=== PATIENT | female | born 1950 | race Caucasian/White ===

== ENCOUNTER → 2019-05-13 09:31 | Outpatient (BNVA) | payer MEDICARE, BC, SELFPAY | PROVIDERS: Family Provider Nurse Practitioner Family; PCP Nurse Practitioner Family; Visit Provider Internal Medicine Hematology & Oncology | DX: C34.90 Malignant neoplasm of unspecified part of unspecified bronchus or lung (principal) | CPT/HCPCS: 80053; 85025 ==

== ENCOUNTER 2019-05-15 08:11 | Outpatient (CLI) | payer MEDICARE, BC, SELFPAY ==
--- NOTE | 2019-05-15 12:58 | ONC FU_ITS ---
Dr. Hanna follow up note Patient: Sugar Hoskins Unit #: [id number]: 1950 Dicatated By: Valentino Hanna M.D.Date of Visit:May 15, 2019 Onc Med Follow-up/Prog Note History of Present Illness: Mrs. Hoskins, is a 68-year-old female who was scheduled for colonoscopy evaluation and during colonoscopy prep she had near syncopal attack. During workup for the syncopal episode an X-ray was done. It reported an incidental finding of right upper lobe lesion. Mrs Hoskins was evaluated by Dr. Pinon and she underwent right upper lobe lobectomy on 04/08/2018. Pathology reported a 4.3 x 3.7 x 2.1 cm lesion with positive lymphovascular space invasion and tumor invaded into, but not through, the pleura. Margins were clear and 0 out of 3 lymph nodes showed no metastasis. As per pathology it was T2a lesion but as per eighth addition TNM it would be T2b as it is more than 4 cm. It was N0 and M0 as PET scan showed no distant metastases except 2.5 cm activity in the hepatic flexure of the colon with SUV of 16.5. Followup colonoscopy showed evidence of diverticulitis but no malignancy in that abnormal area. Being a high risk patient, she was referred to [facility] for evaluation by Dr. Godinez , medical oncologist who concurred with adjuvant chemotherapy and recommended cisplatin/Alimta-based regimen. Ms. Hoskins began her first dose of cisplatin and Alimta on 07/02/2018. And completed recommended 4 cycles of chemotherapy with cisplatin/Alimta on 09/03/2018 Came for follow-up, denies any specific complaints, no fever or chills, no nausea or vomiting, no diarrhea constipation, no new bony pains, right leg swelling has resolved. Appetite is good. Medications: Acetaminophen 2 Tablet (of 500 mg) Oral b.i.d., Aspirin 1 Tablet (of 81 mg) Oral daily, Atorvastatin Calcium 1 Tablet (of 80 mg) Oral daily, glipiZIDE 1 Tablet (of 5 mg) Oral daily, Hydrocodone-Acetaminophen 1 Tablet (of 5-325 mg) Oral at bedtime, Lisinopril-Hydrochlorothiazide 1 Tablet (of 10-12.5 mg) Oral daily Allergies: No Known Allergies. Review of Systems: Constitutional - Appetite is fair and weight is stable. No fever, chills, hot flashes, or night sweats. Energy level is fair/good, ENMT - Positive for sinus congestion/drainage. No mouth sores. No sore throat or difficulty swallowing, Hematologic/Lymphatic - Pt bruises and bleeds easily, Respiratory - Pt has shortness of breath. No cough. No pleuritic pain or hemoptysis, Cardiovascular - No angina pain. No palpitations, Gastrointestinal - No nausea or vomiting, Genitourinary (F) - No dysuria or hematuria. No urinary frequency. No urgency or incontinence, Musculoskeletal - No joint or bone pain, Neurologic - No headache or dizziness. Some numbness in right leg, Psychiatric - Pt positive for depression and frequent tearfulness/anxiety. No insomnia. Vital Signs: Performed on May 15, 2019 08:35 Height - 65.00 in Weight - 185.6 lbs (HIGH) BSA - 1.92 sq.m BMI - 30.89 (HIGH) Temperature - 98.8 F Pulse - 87 /min Respiration - 20 /min BP - 142/80 mm(hg) (HIGH) O2 Sat - 96 % Pain - 0 Performance Status: 0 - Fully active, able to carry on all predisease activities without restrictions. (ECOG) Physical Examination: ENMT - No oral exudates, ulcers, masses, thrush or mucositis. Oropharynx clear. Tongue normal, Respiratory - Lungs are clear to auscultation without rhonchi or wheezing, Cardiovascular - Regular rate and rhythm of heart, Abdomen - Non-tender, non-distended, Good bowel sounds. No guarding or rebound tenderness. No pulsatile masses, Extremities - no edema. Lab/Imaging: Test performed on May 13, 2019 09:31 WBC 5.9 10^9/L RBC 4.08 10^12/L HGB 12.0 g/dL HCT 36.6 % MCV 89.7 fl MCH 29.4 pg MCHC 32.8 g/dL RDW 12.3 % Platelet Count 332 10^9/L MPV 11.0 fL Neutrophils (Gran) 2.8 10^9/L Lymphocytes 2.4 10^9/L Monocytes 0.6 10^9/L Eosinophils 0.1 10^9/L Basophils 0.0 10^9/L Manual Lymphocytes 40.4 % Manual Monocytes 9.4 % Manual Eosinophils 1.3 % Manual Basophils 0.7 % NRBCs 0.0 /100 WBC Test performed on May 13, 2019 08:34 Glucose 118 mg/dL BUN 20 mg/dL Creatinine 0.8 mg/dL Cr Clearance (Est) 85.61 mL/min Sodium 138 mmol/L Potassium 4.4 mmol/L Chloride 99 mmol/L CO2 23 mmol/L Calcium 10.5 mg/dL Protein, Total 6.8 g/dL Albumin 4.2 g/dL Globulin 2.6 g/dL Bilirubin, Total 0.4 mg/dL Alkaline Phosphatase 76 IU/L AST (SGOT) 25 IU/L ALT (SGPT) 31 IU/L Test performed on Dec 02, 2018 09:56 Cholesterol, Total 137 mg/dL HDL Cholesterol 37 mg/dL LDL Cholesterol 65 mg/dL Triglycerides 177 mg/dL Impression: 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 Stage pT2b (>4 cm) N0,M0 stage IIa with a high risk feature like lymphovascular invasion, more than [address] PET scan done on 01/05/2018 showed 2.5 cm x 1.3 centimeter right upper lobe lesion with SUV of 8.8 and 2.5 cm lesion off activity in the hepatic flexure with SUV of 16.5 Follow-up colonoscopy showed diverticulitis and no evidence of malignancy in abnormal area mentioned in the CT PET scan Ms. Hoskins is now undergoing adjuvant chemotherapy for resected stage II infiltrating adenocarcinoma of the right upper lobe status post right upper lobectomy. Her current plan is cisplatin/Alimta for 4 cycles with treatments being on a 21 day cycle. She'll receive growth factor support as needed as well. She began her first cycle on 07/02/2018.Completed 4 cycles of chemotherapy with cisplatin/Alimta on 09/03/2018 Plan: Discussed with patient regarding her labs white blood count 5.9 hemoglobin crit 36.6 platelets 332,000 CMP within normal limits Clinically, patient is doing well with no signs symptoms suggestive of recurrence of disease are lab workup is reasonable. We'll continue to monitor and then she will return to clinic in 3 months with CBC CMP and follow-up CT scan of chest and abdomen and also get mammogram as the last mammogram was done several years ago. Signed By: Valentino Hanna M.D. <<Signature on File>>
== END 2019-05-15 08:12 | disposition home or self-care (01) ==
LOC: ONCMED 08:15
PROVIDERS: Family Provider Nurse Practitioner Family; PCP Nurse Practitioner Family; Visit Provider Internal Medicine Hematology & Oncology
DX: Z08 Encounter for follow-up examination after completed treatment for malignant neoplasm (principal); Z85.118 Personal history of other malignant neoplasm of bronchus and lung; F41.8 Other specified anxiety disorders; Z79.82 Long term (current) use of aspirin; Z79.891 Long term (current) use of opiate analgesic; Z90.2 Acquired absence of lung [part of]; Z92.21 Personal history of antineoplastic chemotherapy
CPT/HCPCS: 99214

== ENCOUNTER 2019-06-16 09:02 | Outpatient (CLI) | payer MEDICARE, BC, SELFPAY ==
--- NOTE | 2019-06-16 09:13 | MM_ITS ---
WS: [id number] BILATERAL SCREENING DIGITAL MAMMOGRAM WITH CAD HISTORY: SCREENING COMPARISON: 09/02/2014, 08/12/2014 Bilateral CC and MLO views submitted. Computer aided detection analyzed. Breast composition: The breasts are heterogeneously dense, which may obscure small masses. No suspici ous masses, microcalcifications or architectural distortion. Biopsy clip upper outer quadrant RIGHT b reast in the area the previously described calcifications. Long-term stability of a 9.3 mm mass LEFT breast at 2:00. Additional benign calcifications in each breast. MM/[place] [id number] IMPRESSION: BI-RADS: 2-Benign FOLLOW UP: 1 Year Follow-up
== END 2019-06-16 09:03 | disposition home or self-care (01) ==
LOC: ONCMED 09:09
PROVIDERS: Visit Provider Internal Medicine Hematology & Oncology
DX: Z12.31 Encounter for screening mammogram for malignant neoplasm of breast (principal)
CPT/HCPCS: 77067

== ENCOUNTER → 2019-08-18 11:23 | Outpatient (BNVA) | payer MEDICARE, BC, SELFPAY | PROVIDERS: Visit Provider Nurse Practitioner Family | DX: Z90.2 Acquired absence of lung [part of] (principal); C34.90 Malignant neoplasm of unspecified part of unspecified bronchus or lung; E11.9 Type 2 diabetes mellitus without complications; I10 Essential (primary) hypertension; E78.5 Hyperlipidemia, unspecified; K58.1 Irritable bowel syndrome with constipation | CPT/HCPCS: 80053; 80061; 83036; 84443; 85025 ==

== ENCOUNTER 2019-11-05 09:42 | Outpatient (CLI) | payer MEDICARE, BC, SELFPAY ==
--- NOTE | 2019-11-05 10:23 | CT_ITS ---
WS: [id number] CT CHEST, ABDOMEN, AND PELVIS TECHNIQUE: Contrast-enhanced CT of the chest, abdomen, and pelvis with coronal and sagittal reformatt ed images. CLINICAL INFORMATION: LUNG CANCER COMPARISON: None. DLP: 1947.[address] scans at [facility] use at least one of these dose optimization techniques: automat ed exposure control; mA and/or kV adjustment per patient size (includes targeted exams where dose is matched to clinical indication); or iterative reconstruction. CT CHEST: Prior postoperative changes right upper and middle lobectomies. Chronic emphysematous changes. Small esophageal hiatal hernia. Volume loss right lung. Parenchymal fibrosis right hilum and right upper lo be with surgical clips. No evidence of residual or recurrent disease. Focal pleural thickening right lower lobe along the diaphragm. Subsegmental atelectasis right lower lobe. Left lung is well aerated. No acute pulmonary infiltrates. No suspicious pulmonary parenchymal abnorm alities. No axillary lymphadenopathy. Thoracic scoliosis and kyphosis. CT ABDOMEN AND PELVIS: Diffuse fatty infiltration the liver. Normal portal vein and splenic vein. Normal gallbladder. Normal spleen. Small esophageal hiatal hernia. Adrenal glands are normal. Normal renal parenchymal enhancem ent. No hydronephrosis. Small left renal cyst. No abdominal lymphadenopathy. Normal caliber abdominal aorta. Aortic calcification. Postoperative changes sigmoid colon. No evidence of recurrent or residual disease at the sigmoid colo n anastomosis. Surgical clips left iliac chain. No evidence of small or large bowel obstruction. No p elvic lymphadenopathy. No inguinal lymphadenopathy. CT/CT chest abd pel w con* IMPRESSION: 1. No evidence of residual or progressed disease in the chest abdomen or pelvi s. 2. Prior postoperative changes subtotal right upper and right middle lobe lobe ctomies with surgical clips along the right hilum. Volume loss right lung. 3. Pleural thickening along the right hemidiaphragm with adjacent subsegmental atelectasis. Nodular thickening measures 10 mm. Recommend 6 month follow-up th chest CT to confirm stability. This is likely related to prior postoperative changes and chest tube placement. 4. No suspicious pulmonary parenchymal abnormalities. 5. No mediastinal or hilar lymphadenopathy. 6. Mild diffuse fatty infiltration liver. 7. No hydronephrosis. 8. Small esophageal hiatal hernia. 9. Sigmoid anastomosis. No evidence of local recurrence. 10. No other significant findings.
[2019-11-05 10:59] LABS: Blood Urea Nitrogen 19 mg/dL (8-23); Glomerular Filtration Rate 62.3 mL/min (90-130)
[2019-11-05] MEDS: iohexol 300 mg/mL 100 mL Btl IV (11:44)
[2019-11-05] MEDS: iohexol 300 mg/mL 50 mL Btl PO (11:44)
== END 2019-11-05 09:43 | disposition home or self-care (01) ==
PROVIDERS: PCP Nurse Practitioner Family; Visit Provider Internal Medicine Hematology & Oncology
DX: C34.11 Malignant neoplasm of upper lobe, right bronchus or lung (principal); K63.89 Other specified diseases of intestine; K44.9 Diaphragmatic hernia without obstruction or gangrene; K76.0 Fatty (change of) liver, not elsewhere classified
CPT/HCPCS: 71260; 74177; 82565; 84520

== ENCOUNTER 2019-11-07 09:41 | Outpatient (CLI) | payer MEDICARE, BC, SELFPAY ==
--- NOTE | 2019-11-07 10:50 | ONC FU_ITS ---
Dr. Hanna follow up note Patient: Sugar Hoskins Unit #: [id number]: 1950 Dicatated By: Valentino Hanna M.D.Date of Visit:Nov 07, 2019 Onc Med Follow-up/Prog Note History of Present Illness: Mrs. Hoskins, is a 69-year-old female who was scheduled for colonoscopy evaluation and during colonoscopy prep she had near syncopal attack. During workup for the syncopal episode an X-ray was done. It reported an incidental finding of right upper lobe lesion. Mrs Hoskins was evaluated by Dr. Pinon and she underwent right upper lobe lobectomy on 04/08/2018. Pathology reported a 4.3 x 3.7 x 2.1 cm lesion with positive lymphovascular space invasion and tumor invaded into, but not through, the pleura. Margins were clear and 0 out of 3 lymph nodes showed no metastasis. As per pathology it was T2a lesion but as per eighth addition TNM it would be T2b as it is more than 4 cm. It was N0 and M0 as PET scan showed no distant metastases except 2.5 cm activity in the hepatic flexure of the colon with SUV of 16.5. Followup colonoscopy showed evidence of diverticulitis but no malignancy in that abnormal area. Being a high risk patient, she was referred to [facility] for evaluation by Dr. Godinez , medical oncologist who concurred with adjuvant chemotherapy and recommended cisplatin/Alimta-based regimen. Ms. Hoskins began her first dose of cisplatin and Alimta on 07/02/2018. And completed recommended 4 cycles of chemotherapy with cisplatin/Alimta on 09/03/2018 f/u CT scan of chest abdomen pelvis done on November 05, 2019 showed no evidence of recurrence of disease, postoperative changes subtotal right upper and right middle lobe lobectomies, pleural thickening along the right hemidiaphragm with adjacent subsegmental atelectasis. Nodular thickening measuring 10 mm this is likely related to postoperative changes in the chest tube placement Mammogram done on June 16, 2019 showed benign findings BI-RADS 2 Came for follow-up, denies any specific complaints, no fever chills no nausea vomiting, no diarrhea constipation, no hemoptysis or hematemesis, no new bony pains, Appetite is good, weight is stable Medications: Acetaminophen 2 Tablet (of 500 mg) Oral b.i.d., Aspirin 1 Tablet (of 81 mg) Oral daily, Atorvastatin Calcium 1 Tablet (of 80 mg) Oral daily, Farxiga 1 Tablet (of 5 mg) Oral daily, Hydrocodone-Acetaminophen 1 Tablet (of 5-325 mg) Oral at bedtime, Lisinopril-Hydrochlorothiazide 1 Tablet (of 10-12.5 mg) Oral daily Allergies: No Known Allergies. Review of Systems: Constitutional - Appetite is fair and weight is stable. No fever, chills, hot flashes, or night sweats. Energy level is fair/good, ENMT - Positive for sinus congestion/drainage. No mouth sores. No sore throat or difficulty swallowing, Hematologic/Lymphatic - Pt bruises and bleeds easily, Respiratory - Pt has shortness of breath. No cough. No pleuritic pain or hemoptysis, Cardiovascular - No angina pain. No palpitations, Gastrointestinal - No nausea or vomiting, Genitourinary (F) - No dysuria or hematuria. No urinary frequency. No urgency or incontinence, Musculoskeletal - No joint or bone pain, Neurologic - No headache or dizziness. Some numbness in right leg, Psychiatric - Pt positive for depression and frequent tearfulness/anxiety. No insomnia. Vital Signs: Performed on Nov 07, 2019 10:27 Height - 65.00 in Weight - 183.6 lbs (LOW) BSA - 1.91 sq.m BMI - 30.55 (HIGH) Temperature - 98.4 F Pulse - 71 /min Respiration - 20 /min BP - 139/85 mm(hg) O2 Sat - 97 % Pain - 0 Performance Status: 0 - Fully active, able to carry on all predisease activities without restrictions. (ECOG) Physical Examination: ENMT - No mouth sores, no thrush, no jaundice, Respiratory - Lungs are clear, Cardiovascular - Regular rate and rhythm of heart, Abdomen - Soft, bowel sounds present, Extremities - No visible edema. Lab/Imaging: Test performed on May 13, 2019 09:31 WBC 5.9 10^9/L RBC 4.08 10^12/L HGB 12.0 g/dL HCT 36.6 % MCV 89.7 fl MCH 29.4 pg MCHC 32.8 g/dL RDW 12.3 % Platelet Count 332 10^9/L MPV 11.0 fL Neutrophils (Gran) 2.8 10^9/L Lymphocytes 2.4 10^9/L Monocytes 0.6 10^9/L Eosinophils 0.1 10^9/L Basophils 0.0 10^9/L Manual Lymphocytes 40.4 % Manual Monocytes 9.4 % Manual Eosinophils 1.3 % Manual Basophils 0.7 % NRBCs 0.0 /100 WBC Test performed on May 13, 2019 08:34 Glucose 118 mg/dL BUN 20 mg/dL Creatinine 0.8 mg/dL Cr Clearance (Est) 85.61 mL/min Sodium 138 mmol/L Potassium 4.4 mmol/L Chloride 99 mmol/L CO2 23 mmol/L Calcium 10.5 mg/dL Protein, Total 6.8 g/dL Albumin 4.2 g/dL Globulin 2.6 g/dL Bilirubin, Total 0.4 mg/dL Alkaline Phosphatase 76 IU/L AST (SGOT) 25 IU/L ALT (SGPT) 31 IU/L Impression: 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 Stage pT2b (>4 cm) N0,M0 stage IIa with a high risk feature like lymphovascular invasion, more than [address] PET scan done on 01/05/2018 showed 2.5 cm x 1.3 centimeter right upper lobe lesion with SUV of 8.8 and 2.5 cm lesion off activity in the hepatic flexure with SUV of 16.5 Follow-up colonoscopy showed diverticulitis and no evidence of malignancy in abnormal area mentioned in the CT PET scan Ms. Hoskins is now undergoing adjuvant chemotherapy for resected stage II infiltrating adenocarcinoma of the right upper lobe status post right upper lobectomy. Her current plan is cisplatin/Alimta for 4 cycles with treatments being on a 21 day cycle. She'll receive growth factor support as needed as well. She began her first cycle on 07/02/2018.Completed 4 cycles of chemotherapy with cisplatin/Alimta on 09/03/2018 Plan: Discussed with patient regarding her CT scan of chest abdomen pelvis finding as well as mammogram, which showed no evidence of recurrence of disease. Clinically patient has no signs symptom suggestive of recurrence of disease which was confirmed by follow-up CT scan of chest abdomen pelvis. Except pleural thickening on the right side which could be due to chest tube placement in the past. Source 6-month follow-up CT scan was recommended. Patient return to clinic in 6 months with CBC CMP and follow-up CT scan of chest. Her mammogram also showed benign findings. And will repeat mammogram in 1 year. Signed By: Valentino Hanna M.D. <<Signature on File>>
== END 2019-11-07 09:42 | disposition home or self-care (01) ==
LOC: ONCMED 09:46
PROVIDERS: PCP Nurse Practitioner Family; Visit Provider Internal Medicine Hematology & Oncology
DX: Z08 Encounter for follow-up examination after completed treatment for malignant neoplasm (principal); Z85.118 Personal history of other malignant neoplasm of bronchus and lung; Z90.2 Acquired absence of lung [part of]; Z92.21 Personal history of antineoplastic chemotherapy
CPT/HCPCS: G0463

== ENCOUNTER → 2020-02-11 10:13 | Outpatient (BNVA) | payer MEDICARE, BC, SELFPAY | PROVIDERS: PCP Nurse Practitioner Family; Visit Provider Nurse Practitioner Family | DX: E11.9 Type 2 diabetes mellitus without complications (principal); I10 Essential (primary) hypertension | CPT/HCPCS: 80053; 80061; 82043; 83036; 84443; 85025 ==

== ENCOUNTER → 2020-05-05 11:46 | Outpatient (BNVA) | payer MEDICARE, BC, SELFPAY | PROVIDERS: PCP Nurse Practitioner Family; Visit Provider Nurse Practitioner Family | DX: E11.65 Type 2 diabetes mellitus with hyperglycemia (principal); E78.5 Hyperlipidemia, unspecified; I10 Essential (primary) hypertension | CPT/HCPCS: 80053; 80061; 83036; 85025 ==

== ENCOUNTER 2020-05-07 10:22 | Outpatient (CLI) | payer MEDICARE, BC, SELFPAY ==
[2020-05-07 11:12] LABS: Basophils # 0.1 10^3/uL (0.0-0.1); Basophils % 0.7 %; Eosinophils # 0.1 10^3/uL (0.0-0.8); Eosinophils % 1.6 %; Hematocrit 41.6 % (37.0-47.0); Hemoglobin 13.6 g/dL (11.5-15.3); Lymphocytes # 2.5 10^3/uL (0.8-4.8); Lymphocytes % 30.9 %; Mean Corpuscular HGB Conc 32.7 g/dL (30.0-36.0); Mean Corpuscular Hemoglobin 29.8 pg (28.0-34.0); Mean Platelet Volume 11.6 fL (7.4-10.4); Monocytes # 0.5 10^3/uL (0.2-0.9); Monocytes % 6.3 %; Neutrophils # 4.87 10^3/uL (1.8-7.7); Neutrophils % 60.1 %; Nucleated Red Blood Cells % 0 %; Platelet Count 334 10^3/cmm (130-400); Red Blood Count 4.57 10^6/uL (4.1-5.3); White Blood Count 8.1 10^3/uL (4.0-10.0)
[2020-05-07 11:28] LABS: Alanine Aminotransferase 29 U/L (0-33); Albumin Level 4.6 g/dL (3.5-5.2); Alkaline Phosphatase 94 IU/L (35-105); Aspartate Amino Transferase 29 U/L (0-32); Blood Urea Nitrogen 15 mg/dL (8-23); Calcium 9.8 mg/dL (8.5-10.5); Carbon Dioxide 25 mmol/L (22-29); Chloride 100 mmol/L (98-107); Globulin 3.3 g/dL (1.3-4.6); Glomerular Filtration Rate 83.2 mL/min (90-130); Glucose 179 mg/dL (65-115); Osmolality Calculated 291 mOsm/kg (285-295); Sodium 138 mmol/L (136-145); Total Bilirubin 0.4 mg/dL (0.15-1.2); Total Protein 7.9 g/dL (6.6-8.7)
== END 2020-05-07 10:23 | disposition home or self-care (01) ==
LOC: ONCMED 10:25
PROVIDERS: PCP Nurse Practitioner Family; Visit Provider Internal Medicine Hematology & Oncology
DX: C34.11 Malignant neoplasm of upper lobe, right bronchus or lung (principal); K76.0 Fatty (change of) liver, not elsewhere classified; J98.11 Atelectasis
CPT/HCPCS: 71260; 80053; 85025

== ENCOUNTER 2020-05-07 11:14 | Outpatient (CLI) | payer MEDICARE, BC, SELFPAY ==
--- NOTE | 2020-05-07 11:26 | CT_ITS ---
WS: [id number] CT CHEST TECHNIQUE: Contrast enhanced CT of the chest with coronal and sagittal reformatted images. CLINICAL INFORMATION: LUNG CANCER COMPARISON: None. DLP: 839.[address] scans at [facility] use at least one of these dose optimization techniques: automat ed exposure control; mA and/or kV adjustment per patient size (includes targeted exams where dose is matched to clinical indication); or iterative reconstruction. FINDINGS: Prior postoperative changes RIGHT upper and middle lobectomies. Stable volume loss right andrea ng. Stable 10 mm nodular pleural thickening along the right hemidiaphragm is unchanged. No evidence o f progressed disease in the right lung. Soft tissue opacity in the LEFT upper lobe anteriorly along the anterior mediastinum measures approxi mately 10 mm. Small amount of nodularity in this area on the prior examination measuring 3 mm.. This is nonspecific and could be further evaluated with PET/CT versus short-term 3 month follow-up. Diffuse fatty infiltration of the liver. Small esophageal hiatal hernia. Adrenal glands are normal. M ild thoracic kyphosis. Mild thoracic curve. Moderate chronic emphysematous changes. No acute pulmonary infiltrates. No consolidation or pleural f luid. CT/CT chest w con* [id number] IMPRESSION: 1. Prior postoperative changes subtotal RIGHT upper and right middle lobe lobe ctomy surgical clips along the right hilum. No evidence of progressed disease i n the right lung. 2. Stable pleural thickening along the right hemidiaphragm with subsegmental a telectasis measuring 10 mm. This is unchanged compared to previous. 3. Nonspecific 10 mm opacity in the LEFT upper lobe anteriorly abutting the me diastinum. Small amount of nodular fibrosis in this area on the prior examinati on. This has significantly increased in size. Recommend further evaluation with PET/CT or [address] follow-up. 4. No mediastinal or hilar lymphadenopathy. 5. Mild diffuse fatty infiltration liver.
[2020-05-07] MEDS: iohexol 300 mg/mL 100 mL Btl IV (11:53)
== END 2020-05-07 11:15 | disposition home or self-care (01) ==
LOC: RAD 11:21
PROVIDERS: PCP Nurse Practitioner Family; Visit Provider Internal Medicine Hematology & Oncology
DX: C34.11 Malignant neoplasm of upper lobe, right bronchus or lung (principal); K76.0 Fatty (change of) liver, not elsewhere classified; J98.11 Atelectasis
CPT/HCPCS: 71260

== ENCOUNTER 2020-05-10 05:47 | Outpatient (CLI) | payer MEDICARE, BC, SELFPAY ==
--- NOTE | 2020-05-10 14:48 | ONC FU_ITS ---
Dr. Hanna follow up note Patient: Sugar Hoskins Unit #: [id number]: 1950 Dicatated By: Valentino Hanna M.D.Date of Visit:May 10, 2020 Onc Med Follow-up/Prog Note History of Present Illness: Mrs. Hoskins, is a 69-year-old female who was scheduled for colonoscopy evaluation and during colonoscopy prep she had near syncopal attack. During workup for the syncopal episode an X-ray was done. It reported an incidental finding of right upper lobe lesion. Mrs Hoskins was evaluated by Dr. Pinon and she underwent right upper lobe lobectomy on 04/08/2018. Pathology reported a 4.3 x 3.7 x 2.1 cm lesion with positive lymphovascular space invasion and tumor invaded into, but not through, the pleura. Margins were clear and 0 out of 3 lymph nodes showed no metastasis. As per pathology it was T2a lesion but as per eighth addition TNM it would be T2b as it is more than 4 cm. It was N0 and M0 as PET scan showed no distant metastases except 2.5 cm activity in the hepatic flexure of the colon with SUV of 16.5. Followup colonoscopy showed evidence of diverticulitis but no malignancy in that abnormal area. Being a high risk patient, she was referred to [facility] for evaluation by Dr. Godinez , medical oncologist who concurred with adjuvant chemotherapy and recommended cisplatin/Alimta-based regimen. Ms. Hoskins began her first dose of cisplatin and Alimta on 07/02/2018. And completed recommended 4 cycles of chemotherapy with cisplatin/Alimta on 09/03/2018 f/u CT scan of chest abdomen pelvis done on November 05, 2019 showed no evidence of recurrence of disease, postoperative changes subtotal right upper and right middle lobe lobectomies, pleural thickening along the right hemidiaphragm with adjacent subsegmental atelectasis. Nodular thickening measuring 10 mm this is likely related to postoperative changes in the chest tube placement Mammogram done on June 16, 2019 showed benign findings BI-RADS 2 Follow-up CT scan of chest done on May 07, 2020 showed postoperative changes right upper and right middle lobe, no evidence of disease progression in the right lung. Nonspecific 10 mm opacity in the left upper lobe anteriorly abutting mediastinum. Small amount of nodular fibrosis in this area on the prior examination. Has significantly increased in size no mediastinal or hilar lymphadenopathy, diffuse fatty infiltration liver Came for follow-up, patient denies any specific complaints, no fever chills, no nausea or vomiting, no diarrhea constipation, no hemoptysis or hematemesis, no new bony pains, appetite is good. Medications: Acetaminophen 2 Tablet (of 500 mg) Oral b.i.d., Aspirin 1 Tablet (of 81 mg) Oral daily, Atorvastatin Calcium 1 Tablet (of 80 mg) Oral daily, Farxiga 1 Tablet (of 5 mg) Oral daily, Hydrocodone-Acetaminophen 1 Tablet (of 5-325 mg) Oral at bedtime, Lisinopril-Hydrochlorothiazide 1 Tablet (of 10-12.5 mg) Oral daily Allergies: No Known Allergies. Review of Systems: Constitutional - Appetite is fair and weight is stable. No fever, chills, hot flashes, or night sweats. Energy level is fair/good, ENMT - Positive for sinus congestion/drainage. No mouth sores. No sore throat or difficulty swallowing, Hematologic/Lymphatic - Pt bruises and bleeds easily, Respiratory - Pt has shortness of breath. No cough. No pleuritic pain or hemoptysis, Cardiovascular - No angina pain. No palpitations, Gastrointestinal - No nausea or vomiting, Genitourinary (F) - No dysuria or hematuria. No urinary frequency. No urgency or incontinence, Musculoskeletal - No joint or bone pain, Neurologic - No headache or dizziness. Some numbness in right leg, Psychiatric - Pt positive for depression and frequent tearfulness/anxiety. No insomnia. Vital Signs: Vitals are not available for this patient. Performance Status: 0 - Fully active, able to carry on all predisease activities without restrictions. (ECOG) Physical Examination: ENMT - No mouth sores, no thrush, no jaundice, Respiratory - Lungs are clear to auscultation, Cardiovascular - Regular rate and rhythm of heart, Abdomen - Soft, bowel sounds present, Extremities - No visible edema. Lab/Imaging: Test performed on May 07, 2020 10:34 Sodium 138 mmol/L Potassium 4.0 mmol/L Chloride 100 mmol/L CO2 25 mmol/L Anion Gap 17.0 BUN 15 mg/dL Creatinine 0.7 mg/dL Cr Clearance (Est) 101.1300 mL/min eGFR 83.2 mL/min Glucose 179 mg/dL Osmolality - Calculated 291 mOsm/kg Calcium 9.8 mg/dL Protein, Total 7.9 g/dL Albumin 4.6 g/dL Globulin 3.3 g/dL Bilirubin, Total 0.4 mg/dL ALT (SGPT) 29 U/L AST (SGOT) 29 U/L Alkaline Phosphatase 94 IU/L WBC 8.1 10 3/uL RBC 4.57 10 6/uL HGB 13.6 g/dL HCT 41.6 % MCV 91.0 fL MCH 29.8 pg MCHC 32.7 g/dL RDW 12.0 % Platelet Count 334 10 3/cmm MPV 11.6 fL Neutrophils 4.87 10 3/uL Lymphocytes 2.5 10 3/uL Monocytes 0.5 10 3/uL Eosinophils 0.1 10 3/uL Basophils 0.1 10 3/uL Neutrophil % 60.1 % Lymphocyte % 30.9 % Monocyte % 6.3 % Eosinophil % 1.6 % Basophils % 0.7 % NRBC % 0 % Impression: 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 Stage pT2b (>4 cm) N0,M0 stage IIa with a high risk feature like lymphovascular invasion, more than [address] PET scan done on 01/05/2018 showed 2.5 cm x 1.3 centimeter right upper lobe lesion with SUV of 8.8 and 2.5 cm lesion off activity in the hepatic flexure with SUV of 16.5 Follow-up colonoscopy showed diverticulitis and no evidence of malignancy in abnormal area mentioned in the CT PET scan s/p adjuvant chemotherapy for resected stage II infiltrating adenocarcinoma of the right upper lobe status post right upper lobectomy. cisplatin/Alimta for 4 cycles She began her first cycle on 07/02/2018.Completed 4 cycles of chemotherapy with cisplatin/Alimta on 09/03/2018 Plan: Discussed with patient regarding her labs white blood count 8.1 hemoglobin 13.6 hematocrit 41.6 platelets 334,000 CMP within normal limit except glucose [address] scan of chest done recently showed postoperative changes in the right lung no evidence of recurrence of disease but nonspecific progressive changes in the left upper lobe anteriorly abutting the mediastinum, CT PET scan is recommended for further evaluation Clinically, patient denies any signs symptom suggestive of recurrence of disease but her follow-up CT scan of chest showed nonspecific but progressive changes in left upper lobe, as per radiologist CT PET scan was recommended to evaluate further, so we will schedule her for CT PET scan and she will return to clinic after CT PET scan for further discussion, if CT PET scan shows abnormality in the left upper lobe of the lung, will refer her to pulmonology for evaluation. Signed By: Valentino Hanna M.D. <<Signature on File>>
== END 2020-05-10 05:48 | disposition home or self-care (01) ==
LOC: ONCMED 05:51
PROVIDERS: PCP Nurse Practitioner Family; Visit Provider Internal Medicine Hematology & Oncology
DX: C34.11 Malignant neoplasm of upper lobe, right bronchus or lung (principal); Z90.2 Acquired absence of lung [part of]; Z92.21 Personal history of antineoplastic chemotherapy
CPT/HCPCS: 99214

== ENCOUNTER 2020-05-27 06:00 | Outpatient (CLI) | payer MEDICARE, BC, SELFPAY ==
--- NOTE | 2020-05-28 12:04 | ONC FU_ITS ---
Dr. Hanna follow up note Patient: Sugar Hoskins Unit #: [id number]: 1950 Dicatated By: Valentino Hanna M.D.Date of Visit:May 27, 2020 Onc Med Follow-up/Prog Note History of Present Illness: Mrs. Hoskins, is a 69-year-old female who was scheduled for colonoscopy evaluation and during colonoscopy prep she had near syncopal attack. During workup for the syncopal episode an X-ray was done. It reported an incidental finding of right upper lobe lesion. Mrs Hoskins was evaluated by Dr. Pinon and she underwent right upper lobe lobectomy on 04/08/2018. Pathology reported a 4.3 x 3.7 x 2.1 cm lesion with positive lymphovascular space invasion and tumor invaded into, but not through, the pleura. Margins were clear and 0 out of 3 lymph nodes showed no metastasis. As per pathology it was T2a lesion but as per eighth addition TNM it would be T2b as it is more than 4 cm. It was N0 and M0 as PET scan showed no distant metastases except 2.5 cm activity in the hepatic flexure of the colon with SUV of 16.5. Followup colonoscopy showed evidence of diverticulitis but no malignancy in that abnormal area. Being a high risk patient, she was referred to [facility] for evaluation by Dr. Godinez , medical oncologist who concurred with adjuvant chemotherapy and recommended cisplatin/Alimta-based regimen. Ms. Hoskins began her first dose of cisplatin and Alimta on 07/02/2018. And completed recommended 4 cycles of chemotherapy with cisplatin/Alimta on 09/03/2018 f/u CT scan of chest abdomen pelvis done on November 05, 2019 showed no evidence of recurrence of disease, postoperative changes subtotal right upper and right middle lobe lobectomies, pleural thickening along the right hemidiaphragm with adjacent subsegmental atelectasis. Nodular thickening measuring 10 mm this is likely related to postoperative changes in the chest tube placement Mammogram done on June 16, 2019 showed benign findings BI-RADS 2 Follow-up CT scan of chest done on May 07, 2020 showed postoperative changes right upper and right middle lobe, no evidence of disease progression in the right lung. Nonspecific 10 mm opacity in the left upper lobe anteriorly abutting mediastinum. Small amount of nodular fibrosis in this area on the prior examination. Has significantly increased in size no mediastinal or hilar lymphadenopathy, diffuse fatty infiltration liver Follow-up CT PET scan done on May 15, 2020 shows a new soft tissue lesion at the anterior mediastinum, contiguous with the left upper lobe measuring 1.2 cm with SUV of 3.3 and postsurgical change in the right upper lung Came for follow-up, denies any specific complaints, no fever chills, no nausea or vomiting, no diarrhea constipation, no hemoptysis or hematemesis, no headaches or blurred vision or double vision, no shortness of breath, no cough, no weight loss, appetite is good. Medications: Acetaminophen 2 Tablet (of 500 mg) Oral b.i.d., Aspirin 1 Tablet (of 81 mg) Oral daily, Atorvastatin Calcium 1 Tablet (of 80 mg) Oral daily, Farxiga 1 Tablet (of 5 mg) Oral daily, Hydrocodone-Acetaminophen 1 Tablet (of 5-325 mg) Oral at bedtime, Lisinopril-Hydrochlorothiazide 1 Tablet (of 10-12.5 mg) Oral daily Allergies: No Known Allergies. Review of Systems: Review of Systems is not available for this patient. Vital Signs: Performed on May 27, 2020 16:04 Height - 65.00 in Weight - 183.4 lbs (HIGH) BSA - 1.91 sq.m BMI - 30.52 (HIGH) Temperature - 98.2 F (LOW) Pulse - 112 /min (HIGH) Respiration - 18 /min BP - 198/83 mm(hg) (HIGH) O2 Sat - 110 % (HIGH) Pain - 0 Performance Status: 0 - Fully active, able to carry on all predisease activities without restrictions. (ECOG) Physical Examination: ENMT - No mouth sores, no thrush, no jaundice, Respiratory - Lungs are clear to auscultation, Cardiovascular - Regular rate and rhythm of heart, Abdomen - Soft, bowel sounds present, Extremities - No visible edema. Lab/Imaging: Test performed on May 07, 2020 10:34 Sodium 138 mmol/L Potassium 4.0 mmol/L Chloride 100 mmol/L CO2 25 mmol/L Anion Gap 17.0 BUN 15 mg/dL Creatinine 0.7 mg/dL Cr Clearance (Est) 101.1300 mL/min eGFR 83.2 mL/min Glucose 179 mg/dL Osmolality - Calculated 291 mOsm/kg Calcium 9.8 mg/dL Protein, Total 7.9 g/dL Albumin 4.6 g/dL Globulin 3.3 g/dL Bilirubin, Total 0.4 mg/dL ALT (SGPT) 29 U/L AST (SGOT) 29 U/L Alkaline Phosphatase 94 IU/L WBC 8.1 10 3/uL RBC 4.57 10 6/uL HGB 13.6 g/dL HCT 41.6 % MCV 91.0 fL MCH 29.8 pg MCHC 32.7 g/dL RDW 12.0 % Platelet Count 334 10 3/cmm MPV 11.6 fL Neutrophils 4.87 10 3/uL Lymphocytes 2.5 10 3/uL Monocytes 0.5 10 3/uL Eosinophils 0.1 10 3/uL Basophils 0.1 10 3/uL Neutrophil % 60.1 % Lymphocyte % 30.9 % Monocyte % 6.3 % Eosinophil % 1.6 % Basophils % 0.7 % NRBC % 0 % Impression: 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 Stage pT2b (>4 cm) N0,M0 stage IIa with a high risk feature like lymphovascular invasion, more than [address] PET scan done on 01/05/2018 showed 2.5 cm x 1.3 centimeter right upper lobe lesion with SUV of 8.8 and 2.5 cm lesion off activity in the hepatic flexure with SUV of 16.5 Follow-up colonoscopy showed diverticulitis and no evidence of malignancy in abnormal area mentioned in the CT PET scan s/p adjuvant chemotherapy for resected stage II infiltrating adenocarcinoma of the right upper lobe status post right upper lobectomy. cisplatin/Alimta for 4 cycles She began her first cycle on 07/02/2018.Completed 4 cycles of chemotherapy with cisplatin/Alimta on 09/03/2018 Follow-up CT scan of chest done on May 07, 2020 showed postoperative change in the right upper lobe but nonspecific 10 mm opacity in the left upper lobe anteriorly abutting mediastinum , further evaluation with CT PET scan was done on May 15, 2020 confirmed new soft tissue lesion at the anterior mediastinum, contiguous with the left upper lobe measuring 1.2 cm with SUV of 3.3 Plan: Discussed with patient regarding her CT PET scan findings which was done on May 15, 2020 which showed there is a new soft tissue lesion at the anterior mediastinum, contiguous with the left upper lobe measured 1.2 cm with SUV of 3.3 and status post right upper lobectomy. Clinically, patient is doing well with no new signs symptoms suggestive of disease progression but her follow-up CT scan chest and now CT PET scan has confirmed new abnormality in the left lung/anterior mediastinum, etiology new primary versus metastatic disease versus inflammatory/infectious, at this point we will refer her to pulmonology for evaluation and biopsy Patient return to clinic after Lung biopsy with CBC CMP Signed By: Valentino Hanna M.D. <<Signature on File>>
== END 2020-05-27 06:01 | disposition home or self-care (01) ==
LOC: ONCMED 06:02
PROVIDERS: PCP Nurse Practitioner Family; Visit Provider Internal Medicine Hematology & Oncology
DX: C34.11 Malignant neoplasm of upper lobe, right bronchus or lung (principal); C78.2 Secondary malignant neoplasm of pleura; K57.92 Diverticulitis of intestine, part unspecified, without perforation or abscess without bleeding; Z92.21 Personal history of antineoplastic chemotherapy; Z79.899 Other long term (current) drug therapy
CPT/HCPCS: 99214

== ENCOUNTER → 2020-06-24 11:01 | Outpatient (BNVA) | payer MEDICARE, BC, SELFPAY | PROVIDERS: PCP Nurse Practitioner Family; Visit Provider Internal Medicine Pulmonary Disease | DX: J44.9 Chronic obstructive pulmonary disease, unspecified (principal) | CPT/HCPCS: 87635 ==

== ENCOUNTER 2020-06-28 08:51 | Outpatient (CLI) | payer MEDICARE, BC, SELFPAY ==
[2020-06-28 14:30] VITALS: BP 133/85
--- NOTE | 2020-06-28 14:32 | PFTS_ITS ---
Date of Study:06/28/20 Date of Dictation: MECHANICS: Forced vital capacity (FVC) is normal. Forced expiratory volume in one second (FEV1) is reduced. FEV1/FVC is reduced. FLOW VOLUME LOOP: Reduced flow at all lung volumes with scooping. LUNG VOLUMES: Total lung capacity (TLC) is normal. Residual volume (RV) is reduced. DIFFUSING CAPACITY FOR CARBON MONOXIDE: Mild reduced. INTERPRETATION: The postbronchodilator spirometry is consistent with moderate obstruction. The total lung capacity is normal. Isolated reduction of residual volume is a nonspecific finding. However, can be seen in the setting of early interstitial lung disease. Gas exchange (DLCO) is mildly reduced. MTDD
== END 2020-06-28 08:52 | disposition home or self-care (01) ==
LOC: RT 08:53
PROVIDERS: PCP Nurse Practitioner Family; Visit Provider Internal Medicine Pulmonary Disease
DX: J44.9 Chronic obstructive pulmonary disease, unspecified (principal)
CPT/HCPCS: 94060; 94618; 94726; 94729; J7611

== ENCOUNTER → 2020-07-21 14:45 | Outpatient (BNVA) | payer MEDICARE, BC, SELFPAY | PROVIDERS: PCP Nurse Practitioner Family; Visit Provider Thoracic Surgery (Cardiothoracic Vascular Surgery) | DX: R91.8 Other nonspecific abnormal finding of lung field (principal) | CPT/HCPCS: 87635 ==

== ENCOUNTER 2020-07-26 13:58 | Inpatient (IN) | payer MEDICARE, BC, SELFPAY ==
[2020-07-21 13:11] VITALS: BMI 30.2
[2020-07-21 13:23] LABS: Basophils # 0.1 10^3/uL (0.0-0.1); Basophils % 0.8 %; Eosinophils # 0.1 10^3/uL (0.0-0.8); Eosinophils % 1.7 %; Hematocrit 40.8 % (37.0-47.0); Hemoglobin 13.2 g/dL (11.5-15.3); Lymphocytes # 2.9 10^3/uL (0.8-4.8); Lymphocytes % 34.7 %; Mean Corpuscular HGB Conc 32.4 g/dL (30.0-36.0); Mean Corpuscular Hemoglobin 30.5 pg (28.0-34.0); Mean Corpuscular Volume 94.2 fL (81-99); Mean Platelet Volume 10.7 fL (7.4-10.4); Monocytes # 0.6 10^3/uL (0.2-0.9); Monocytes % 7.7 %; Neutrophils # 4.52 10^3/uL (1.8-7.7); Neutrophils % 54.6 %; Nucleated Red Blood Cells % 0 %; Platelet Count 336 10^3/cmm (130-400); Red Blood Count 4.33 10^6/uL (4.1-5.3); Red Cell Distribution Width 12.7 % (12.1-15.1); White Blood Count 8.3 10^3/uL (4.0-10.0)
[2020-07-21 13:34] LABS: Add Urine Microscopic? NO
[2020-07-21 13:35] LABS: INR 0.88 (0.8-1.2)
--- NOTE | 2020-07-21 13:36 | ANES.PREANE2 ---
Pre-Anesthetic Assessment Pre-Anesthetic Assessment: Height/Weight: Height 1.65 m Weight 82.554 kg Preop Diagnosis: Left upper lobe lung mass Proposed Procedure: Operation Date: 07/26/20 10:30 Proposed Procedures p VATS(Not Applicable) - Glen Pinon MD s poss Thoracotomy(Not Applicable) - Glen Pinon MD Familial anesthetic complications: none Social: Social History: No alcohol and No tobacco Comment: former smoker Exam: Pre-Anes Outpt Exam: alert, oriented x 3, clear to auscultation bilaterally and regular rate & rhythm Airway: Cervical ROM: WNL MP: 2 Dentition: False Additional comments: 1 tooth on botttom Pulmonary: Pulmonary: COPD Comments: R side lobectomies CV/HEM: CV/HEM: HTN Metabolic: Metabolic: DM Anesthetic Plan: ASA status: 3 Anesthesia: General Risk of > 500 ml blood loss (7ml/kg in children): No PFSH Anesthesia PFSH: Medical History Anxiety and depression COPD (chronic obstructive pulmonary disease) Diabetes Essential hypertension Family history of breast cancer Family history of colon cancer Irritable bowel syndrome with constipation Lung cancer Mass of left breast on mammogram Nicotine dependence Osteoarthritis Pulmonary nodule, right Stricture of sigmoid colon Vasovagal syncope Surgical History History of colon resection History of lobectomy of lung History of pneumonectomy Family History Father Hypertension Mother Hypertension Social History (Updated 07/12/20 @ 14:01 by Fred Sommers LPN) Smoking and tobacco status: former smoker Quit status (tobacco): has quit using tobacco Year quit tobacco: 2017 [id number] Second hand smoke exposure: Yes Smoking risk assessment/counseling performed?: Yes Alcohol intake: never Caregiver/support person: No Lives independently: Yes Household members: spouse Housing: House Marital status: service: No Current occupational status: retired Pets and animals: No History of recent travel: No Current gender identity: Female Special agustín needs: No Agree to transfusion: Yes Data Anesthesia CBC & Chem 7: 07/21/20 13:17 07/21/20 13:17 Other Labs: Laboratory Results - last 48 hr 07/21/20 07/21/20 13:17 13:17 WBC 8.3 RBC 4.33 Hgb 13.2 Hct 40.8 MCV 94.2 MCH 30.5 MCHC 32.4 RDW 12.7 Plt Count 336 MPV 10.7 H Neut % (Auto) 54.6 Lymph % (Auto) 34.7 Forrest % (Auto) 7.7 Eos % (Auto) 1.7 Baso % (Auto) 0.8 Neut # (Auto) 4.52 Lymph # (Auto) 2.9 Forrest # (Auto) 0.6 Eos # (Auto) 0.1 Baso # (Auto) 0.1 Nucleated RBC % (auto) 0 Nucleated RBCs # 0.0 PT 12.20 INR 0.88 Cardiac Studies: No Data to Display
[2020-07-21 14:09] LABS: Bilirubin Urine Neg (Negative); Blood Urine Neg (Negative); Glucose Urine UA 4+ (Normal); Ketones Urine Negative (Negative); Leukocyte Esterase Urine Negative (Negative); Nitrate Urine Negative (Negative); Protein Urine Neg (Negative); Specific Gravity, Urine 1.015 (1.005-1.030); Urine Appearance Clear (CLEAR); Urine Color Yellow (Yellow); Urobilinogen Urine Norm (Negative); pH Urine 5 (5-7)
[2020-07-21 14:17] LABS: Blood Urea Nitrogen 18 mg/dL (8-23); Calcium 9.7 mg/dL (8.5-10.5); Carbon Dioxide 25 mmol/L (22-29); Chloride 103 mmol/L (98-107); Glomerular Filtration Rate 62.3 mL/min (90-130); Glucose 150 mg/dL (65-115); Osmolality Calculated 295 mOsm/kg (285-295); Sodium 140 mmol/L (136-145)
[2020-07-21 14:20] LABS: Anion Gap 16.1 (5-19); Potassium 4.1 mmol/L (3.5-5.1)
[2020-07-26] VITALS (11 sets, daily range): BP systolic 138–158; BP diastolic 77–90; PULSE 79–97; RESP 16–20; TEMP 36.7–36.9; O2SAT 96–99
[2020-07-26 09:17] LABS: Glucose Point of Care 159 mg/dL (70-110)
[2020-07-26] MEDS: sodium chloride 0.9% 1,000 ML 30 ML IV (09:33)
[2020-07-26] MEDS: midazolam 1 mg/mL INJ 2 mL 2 MG IVP (09:50)
[2020-07-26] MEDS: fentaNYL 50 mcg/mL INJ 2mL IVP (09:51)
--- NOTE | 2020-07-26 10:07 | P.ANES_ITS ---
Anesthesia Procedures Procedure/Date: 07/26/20 Epidural: Time Out Performed: Yes Consents Signed: Procedure Consent Consent: requested by attending/covering physician, from patient, risks and benefits reviewed and patient agrees to proceed Thoracic Level: other (T7-8) Epidural position: sitting Epidural procedure: sterile prep of area, 1% lid ocaine to numb the area, 18 g needle, negative for paresthesia passed, neg for paresthesia, test dose given, 1.5% xylocaine 1:200k epi (3 cc), placed PCEA, no systemic response and sterile dressing applied Additional Comments: SANDRO at 7.5 cm, threaded to 14 cm
--- NOTE | 2020-07-26 10:07 | P.ANESUD_ITS ---
Pre-Anesthetic Update Pre-Anesthetic Assessment: Date of Surgery/Procedure: 07/26/20 Preop Navya gnosis: Left upper lobe lung mass Proposed Procedure: Operation Date: 07/26/20 10:30 Proposed Procedures p VATS(Not Applicable) - Glen Pinon MD s poss Thoracotomy(Not Applicable) - Glen Pinon MD s L Lung Lobectomy(Left) - Glen Pinon MD Any changes to Pre-Anesthetic Assessment?: No Last Intake: Intake Last Liquid Date 07/25/20 Last Liquid Time 21:00 Last Solid Date 07/25/20 Last Solid Time 19:00 Labs Last 48hrs: Laboratory Results - last 48 hr 07/21/20 07/26/20 13:12 09:14 POC Glucose 159 H Blood Type A Positive Rho(D) Type Positive / 4+ Antibody Screen Negative Crossmatch See Detail Vitals: Temperature 98.1 F 07/26/20 09:42 Temperature Source Temporal Artery S can 07/26/20 09:42 Pulse Rate 88 07/26/20 09:42 Pulse Rhythm 07/26/20 08:50 Pulse Strength 3+ Normal 07/26/20 08:50 Respiratory Rate 16 07/26/20 09:42 Blood Pressure 146/77 07/26/20 09:42 Blood Pressure Yasmeen n 100 07/26/20 09:42 Pulse Oximetry 99 07/26/20 09:42 Oxygen Delivery Me thod 07/26/20 09:42 Oxygen Flow Rate 2 07/26/20 09:42 Exam: Pre-Anes Outpt Exam: alert, oriented x 3, clear to auscultation bilaterally and regular rate & rhythm Cardiac Studies: No Data to Display
--- NOTE | 2020-07-26 10:47 | W.PM.OPSUD ---
Surgery/Procedure H&P Update DATE OF PROCEDURE: July 26, 2020 DATE H&P PERFORMED: 07/12/20 H&P UPDATE INFORMATION: I have reviewed H&P completed within last 30 days, I have examined patient prior to procedure and No changes to prior documentation PREOP DIAGNOSIS: Left upper lobe lung mass PRIMARY INDICATION FOR PROCEDURE: Left upper lobe nodule with increased activity on PET scan and prior history of right upper lobe adenocarcinoma in 2018 PLANNED PROCEDURE: Operation Date: 07/26/20 10:30 Proposed Procedures p VATS(Not Applicable) - Glen Pinon MD s poss Thoracotomy(Not Applicable) - Glen Pinon MD s L Lung Lobectomy(Left) - Glen Pinon MD
[2020-07-26] MEDS: ceFAZolin 1,000 mg SDV 2000 MG IRRIGATION (12:15)
[2020-07-26] MEDS: morphine 4 mg/mL SDV 1 mL 2 MG IVP ×4 (14:36→18:06)
--- NOTE | 2020-07-26 14:39 | P.OP_ITS ---
Operative Report Date of procedure: July 26, 2020 Pre-op Diagnosis: Left upper lobe lung mass Post-op diagnosis: same Procedure Done: Left upper lobe anterior segmentectomy Specimens removed/disposition: Anterior segment left upper lobe Surgeon: Glen Pinon Anesthesia: MAC Estimated blood loss (mL): 100 Complications: : Post procedure chest x-ray clear Condition: stable Disposition: ICU Brief History: Ms. Hoskins is a 69-year-old female whom I performed right upper and middle lobectomies March 2018 for infiltrating adenocarcinoma. She underwent postop chemotherapy. During her routine surveillance she was now discovered to have a 1.2 cm anterior segment left upper lobe lesion which had an SUV of 3.3 on PET scan concerning for malignancy. She has been referred by her loss prevention analyst, Dr. Hanna for further evaluation to consideration for extirpation. She has seen Dr. Marte from our pulmonary medicine service preoperatively. Details the risk of surgery were again carefully and frankly discussed. All questions were answered. Proper consents have been reviewed and signed. Procedure: Ms. Hoskins was taken to the operating room theater after thoracic epidural catheter been placed without difficulties. She was Positioned and after confirmation of appropriate IVs, underwent general endotracheal intubation with placement of a double-lumen tube. Right radial arterial catheter was placed. Due to difficulties with bronchoscopy, exact location of the double- lumen tube could not be confirmed endoscopically but was approximated with use of breath sounds. She was carefully positioned in the right lateral cubitus position over axial rolls protective padding. Her entire left chest with a sterilely prepped and draped. Appropriate timeout was completed. Given the substantial shift in size of her left lung parenchyma across the midline as well as a previous bilobectomy, I elected to perform this procedure through a muscle- sparing thoracotomy which was created. The fifth intercostal space was then entered and indeed, anesthesia had difficulty providing 1 lung ventilation, therefore the procedure was performed on 2 lungs. Careful opening of the chest did result in a crack in the sixth rib. This was reapproximated with suture at the end of the procedure. Careful palpation for placement of retractors de monstrated a mobile anterior segment of the left upper lobe without adhesions. This allowed us to carefully isolate this segment of the lung and complete segmentectomy with the use of endoscopic stapler. Specimen was then removed intact. Clinically, this did appear to represent an isolated malignancy. There was some bullous disease moderate nature in the apex as well. Given my concerns for her functioning lung parenchyma given her prior history for bilobectomy, I elected not to perform further resective therapy. 28 Green[place]ic drain was placed connected to Pleur-evac suction. Wound was irrigated with antibiotic solution. There was a minimal air leak along the staple line. Retractors were removed. Sponge needle count was correct. Chest wall was reapproximated with #1 Vicryl suture. Fascia was closed in 2 layers of 0 Vicryl suture. Subcutaneous tissue was closed with 2-0 Vicryl suture. Skin was reapproximated surgical jorge l. Chest tube was placed to Pleur-evac suction very small air leak was noted. Ms. Hoskins was carefully returned to supine position where she was awakened and extubated. He was transferred to the ICU bed and then transported to the ICU in stable condition. We did counselor dormitory with family by phone throughout the procedure and at the completion of the procedure as well. Post procedure chest x-ray in the ICU revealed full lung expansion and appropriate drain placement.
[2020-07-26] MEDS: lactated ringers 1,000 ML 100 ML IV (14:43)
--- NOTE | 2020-07-26 15:00 | XRR_ITS ---
PROCEDURE INFORMATION: Exam: XR Chest Exam date and time: 07/26/2020 2:37 PM Age: 69 years old Clinical indication: Device placement; Other: Post op segmentectomy; Prior surgery; Surgery date: Post-operative (0-2 days) TECHNIQUE: Imaging protocol: XR of the chest Views: 1 view. COMPARISON: CT chest w con* [id number] 05/07/2020 11:38 AM FINDINGS: Tubes, catheters and devices: A left-sided chest tube is noted. Lungs: Fullness of the right hilum is approximately unchanged given differences in patient positioning. There is patchy opacity in the lateral lower left chest that could reflect pneumonia. Pleural spaces: No pleural effusion. No pneumothorax. Heart/Mediastinum: No gross evidence of pneumomediastinum. Bones/joints: No gross fracture. Soft tissues: There has been prior surgery in the right chest. XR/XR chest 1V portable [id number] IMPRESSION: 1. A left-sided chest tube is noted. No pneumothorax is seen. 2. There is patchy opacity in the lateral lower left chest that could reflect pneumonia. 3. Fullness of the right hilum is approximately unchanged given differences in patient positioning. Consider nonemergent CT chest to better compared to prior.
--- NOTE | 2020-07-26 15:42 | PC.CHAP ---
Pastoral Care Encounter/Spiritual Assessment Type of Contact [] Declined child life therapist visit [] Patient/Family/Request visit [] Outpatient visit [] Follow-up visit [] Physician referral [] Code/Alert [] Routine visit [] Staff referral [] Actively dying [] Patient sleeping [] Family support [] [] Out of room [] Palliative care [] [] Receiving care in room [] Pre-surgical visit [] Trauma [] Long length of stay [] ICU visit [x] Other: Relational/Emotional Strength [] Patient feels connected with others/family/visitors/staff [] Distress [] Loneliness/isolation [] Abandonment Spirituality of Patient [] Person of Herminia [] Attends Islam of their [place] [] Believes in Prayer [] Reads Bible or Sabianism materials [] There are Spiritual issues to be addressed Staff Counsel Interventions [] Prayer [] Active listening [] Non-anxious presence [] Spiritual/emotional support [] Crisis/trauma care [] Spiritual counseling [] Bereavement support [] Provided bereavement packet [] Provided Bible/devotional materials [] Provided toy/stuffed animal, coloring book to patient or family member [] Provided Communion [] Anointing/[place] [] Salvation [] Completed spiritual assessment [] Other: Impact on Illness or Injury [] Angry [] Fearful [] Anxious [] Often cries [] Exhaustion [] Unable to work [] Unable to attend pentecostalism [] Unable to walk/stand [] Unable to read [] Unable to drive [] Unable to eat/drink [] Unable to sleep [] Unable to be with family [] Patient intubated [] Other: Summarywent home Time spent with patient
--- NOTE | 2020-07-26 15:52 | PC.NURSE ---
REceived patient from surgery staff at 1415. Started recovery. Vitals:BP: 128/98, HR: 93, SPO2: 100%, Temp:97.6. Current chest tube drain level: 25 ml
--- NOTE | 2020-07-26 15:55 | PC.NURSE ---
REcovery vitals: 1430: BP:134/80 HR:90 RR:18 SPO2:100 Temp:97.5 1445: BP:137/76 HR: 90 RR: 20 SPO2:100 Temp: 97.8 1500: BP:132/96 HR:89 RR:22 SPO2: 98 Temp: 1515: BP: 124/95 HR: 89 RR:22 SPO2: 96 Temp:97.8 CHest drainage amount: 15 mL
[2020-07-26 17:00] LABS: Glucose Point of Care 156 mg/dL (70-110)
--- NOTE | 2020-07-26 17:06 | PC.RESP ---
Pulmonary Rehab information sent to patient.
--- NOTE | 2020-07-26 17:46 | ANE.PACU2 ---
Inpatient post-anesthesia follow up: Airway intact: Yes Vital signs: Temperature 98.0 F Pulse Rate 90 Respiratory Rate 18 Blood Pressure 138/78 Pulse Oximetry 96 Oxygen Delivery Me thod Nasal Cannula Oxygen Flow Rate 3 Fraction of Inspir ed Oxygen Hydration adequate: Yes Nausea and vomiting: No Pain level: 4 Mental status: Baseline
[2020-07-26] MEDS: ceFAZolin 1,000 MG in sodium chloride 0.9% (plus) 50 ML 100 MG IV (18:33)
[2020-07-27] VITALS (187 sets, daily range): BP systolic 102–142; BP diastolic 53–80; PULSE 66–100; RESP 6–27; TEMP 36.6–37; O2SAT 94–99
[2020-07-27] MEDS: lactated ringers 1,000 ML 100 ML IV ×3 (00:57→21:51)
[2020-07-27] MEDS: ceFAZolin 1,000 MG in sodium chloride 0.9% (plus) 50 ML 100 MG IV ×2 (04:38→10:10)
[2020-07-27 05:42] LABS: Basophils % 0.2 %; Hematocrit 35.4 % (37.0-47.0); Hemoglobin 11.2 g/dL (11.5-15.3); Lymphocytes # 0.9 10^3/uL (0.8-4.8); Lymphocytes % 9.8 %; Mean Corpuscular HGB Conc 31.6 g/dL (30.0-36.0); Mean Corpuscular Hemoglobin 30.4 pg (28.0-34.0); Mean Corpuscular Volume 95.9 fL (81-99); Mean Platelet Volume 10.6 fL (7.4-10.4); Monocytes # 0.6 10^3/uL (0.2-0.9); Monocytes % 6.7 %; Neutrophils # 7.53 10^3/uL (1.8-7.7); Neutrophils % 82.6 %; Nucleated Red Blood Cells % 0 %; Platelet Count 268 10^3/cmm (130-400); Red Blood Count 3.69 10^6/uL (4.1-5.3); Red Cell Distribution Width 12.9 % (12.1-15.1); White Blood Count 9.1 10^3/uL (4.0-10.0)
--- NOTE | 2020-07-27 06:00 | XRR_ITS ---
PROCEDURE INFORMATION: Exam: XR Chest Exam date and time: 07/27/2020 5:02 AM Age: 69 years old Clinical indication: Device placement; Other: Pod#1 S/P segmentectomy; Prior surgery; Surgery date: Post-operative (0-2 days) TECHNIQUE: Imaging protocol: XR of the chest Views: 1 view. COMPARISON: CR XR chest 1V portable [id number] 07/26/2020 2:23 PM FINDINGS: Tubes, catheters and devices: A left chest tube is present in stable position. Lungs: There is increasing hazy opacification of the left lung consistent with increasing atelectasis. The right lung has postsurgical changes but is otherwise clear. Pleural spaces: Unremarkable. No pleural effusion. No pneumothorax. Heart/Mediastinum: The heart is normal for the projection. Bones/joints: Unremarkable. XR/XR chest 1V portable [id number] IMPRESSION: 1. Stable position of the left chest tube. 2. Increasing hazy opacification of the left lung consistent with increasing atelectasis.
[2020-07-27 06:29] LABS: Anion Gap 13.9 (5-19); Blood Urea Nitrogen 19 mg/dL (8-23); Carbon Dioxide 24 mmol/L (22-29); Chloride 105 mmol/L (98-107); Glomerular Filtration Rate 71.3 mL/min (90-130); Glucose 152 mg/dL (65-115); Osmolality Calculated 293 mOsm/kg (285-295); Potassium 3.9 mmol/L (3.5-5.1); Sodium 139 mmol/L (136-145)
--- NOTE | 2020-07-27 06:41 | P.PN_ITS ---
Subjective Subjective: Interval history: Postop day #1 status post left upper lobe anterior segmentectomy. Small airleak from early postop has resolved. Chest tube output is low at 70 cc since surgery. Left thoracotomy discomfort. Vital signs are stable. There is some haziness over the left hemithorax as compared to the immediate postop x-ray. I suspect this is some undrained fluid which is probably dependent and hopefully will be recollected with sitting up and increased activity today. Vitals/I&O/Wt Last Vital Signs Temp 98.0 F 07/26/20 10:07 Pulse 75 07/27/20 06:10 Resp 16 07/27/20 06:10 BP 128/63 07/27/20 06:10 Pulse Ox 98 07/27/20 06:10 07/26/20 07/26/20 07/27/20 14:59 22:59 06:59 Intake Total 341.5 / 391.5 1050 / 1441.5 Output Total 625 / 650 1000 / 1650 Balance -283.5 / -258.5 50 / -208.5 Physical Exam Chest: COMMONS NORMALS: normal inspection of the chest OTHER: Chest wall is stable. Surgical dressings in place. Resp: COMMON NORMALS: normal respiratory effort, No retractions and No use of accessory muscles OTHER: Decreased breath sounds left base and laterally no crepitance. Cardio: COMMON NORMALS: regular rate, regular rhythm and S1 normal heart sound present RATE: regular rate RHYTHM: regular rhythm HEART SOUNDS: S1 normal heart sound present Extremity: COMMON NORMALS: no clubbing, cyanosis or edema Urinary Catheter Management^: Herrera: Cath Placed During This Visit: yes Reason for Continuing Indwelling Catheter: Accurate Measurement of Urinary Output in Critically Ill Patients Urinary Catheter Date of Insertion: 07/26/20 Urinary Catheter Time of Insertion: 11:25 Data : 07/27/20 05:24 07/27/20 05:24 A&P Assessment and plan (1) Abnormal PET of left lung: POD #1 status post left upper lobe anterior segmentectomy Plan: Out of bed in chair. Chest tube to waterseal. Encourage aggressive pulmonary toilet Chest x-ray in a.m. Status: Acute Attestations Medical Necessity Statement*: POD #1 status post segmentectomy left upper lobe Time Spent in Patient Care: less than 15 minutes Coding Level of Care Code Acute Road Sign Installer for Chg Fwd Diagnoses Abnormal PET of left lung R94.2
--- NOTE | 2020-07-27 07:15 | ANE.PACU2 ---
Inpatient post-anesthesia follow up: Airway intact: Yes Vital signs: Temperature 98.0 F Pulse Rate 75 Respiratory Rate 16 Blood Pressure 128/63 Pulse Oximetry 98 Oxygen Delivery Me thod Nasal Cannula Oxygen Flow Rate 3 Fraction of Inspir ed Oxygen Hydration adequate: Yes Nausea and vomiting: No Pain level: 5 Mental status: Baseline Additional Comments: Epidural site intact, no signs of erythema, purulence, or swelling. Patient states epidural boluses help ease up the pain. Encouraged bolus use
[2020-07-27] MEDS: ketorolac 30 mg/mL INJ IVP ×2 (08:08→22:19)
[2020-07-27] MEDS: HYDROcodone-acetaminophen 5-325 mg Tablet 1 TAB PO ×3 (08:12→17:02)
[2020-07-27 09:10] LABS: Glucose Point of Care 151 mg/dL (70-110)
[2020-07-27] MEDS: atorvastatin 40 mg Tablet 80 MG PO (10:08)
[2020-07-27] MEDS: pantoprazole DR 40 mg Tablet PO (10:09)
[2020-07-27] MEDS: lisinopril 10 mg Tablet PO (10:09)
[2020-07-27] MEDS: hydroCHLOROthiazide 25 mg Tablet 12.5 MG PO (10:10)
--- NOTE | 2020-07-27 11:29 | PC.NURSE ---
Assisted patient up to a recliner at bedside. PT tolerated movement well.
[2020-07-27 11:56] LABS: Glucose Point of Care 167 mg/dL (70-110)
--- NOTE | 2020-07-27 14:56 | PC.NURSE ---
Patient has been up to a chair for about 4 hours today. Nurse then ambulated patient approximately 150 ft. Pt tolerated very well. Patient back in bed.
[2020-07-27 17:08] LABS: Glucose Point of Care 131 mg/dL (70-110)
[2020-07-27 17:14] LABS: Glucose Point of Care 129 mg/dL (70-110)
--- NOTE | 2020-07-27 19:16 | PC.NURSE ---
Cefazolin completed on day shift. Not running upon accepting report. Stopped in JUN.
[2020-07-27 20:35] LABS: Glucose Point of Care 156 mg/dL (70-110)
[2020-07-28] VITALS (17 sets, daily range): BP systolic 112–160; BP diastolic 63–83; PULSE 69–94; RESP 16–31; TEMP 36.6–37.3; O2SAT 92–99
--- NOTE | 2020-07-28 01:55 | PC.NURSE ---
Received verbal orders to transfer patient to [facility] floor from Dr. Pinon.
--- NOTE | 2020-07-28 04:09 | PC.NURSE ---
Transfer from ICU: Received report from ARASH Lemos. Pt arrived via bed A&OX4 with IV running with IVF and epidural. On RA, no signs of distress. Herrera in place to gravity, draining. Chest tube to gravity, draining. Oriented to the room and call light within reach.
[2020-07-28] MEDS: HYDROcodone-acetaminophen 5-325 mg Tablet 1 TAB PO ×2 (05:58→14:06)
[2020-07-28] MEDS: lactated ringers 1,000 ML 100 ML IV (05:58)
--- NOTE | 2020-07-28 06:00 | XR_ITS ---
WS: [id number] Portable AP upright chest, 07/28/2020 Clinical Data: POD #2 status post segmentectomy left upper lobe Comparison: Portable chest, 07/27/2020 Findings: The left chest tube remains in good position. No pneumothorax is noted. The opacity in the left lung has cleared. The heart size is normal. There are clips in the right mediastinum. The aortic arch and descending aorta show tortuosity. Monitor leads are on the chest wall. XR/XR chest 1V portable [id number] Impression: 1. Clearing of left lung opacity. 2. No change in left chest tube.
[2020-07-28] MEDS: ketorolac 30 mg/mL INJ IVP ×3 (06:06→23:27)
[2020-07-28 06:24] LABS: Glucose Point of Care 142 mg/dL (70-110)
--- NOTE | 2020-07-28 06:53 | PM.PN ---
Subjective Subjective: Interval history: Postop day #2 status post left upper lobe anterior segmentectomy. Pathology is pending. Chest tube output 55 cc past 24 hours. She is ambulating with nursing staff this morning on rounds. She looks quite good. Discomfort from the incision is under good control. Her chest x-ray is very clear. Vitals/I&O/Wt Last Vital Signs Temp 99.1 F 07/28/20 04:00 Pulse 80 07/28/20 04:00 Resp 18 07/28/20 04:00 BP 142/81 07/28/20 04:00 Pulse Ox 92 07/28/20 04:00 07/27/20 07/27/20 07/28/20 14:59 22:59 06:59 Intake Total 1410 / 1410 1158.333 / 2568.333 811.667 / 3380.000 Output Total 700 / 725 880 / 1605 Balance 1385 / 1385 458.333 / 1843.333 -68.333 / 1775.000 Physical Exam Chest: COMMONS NORMALS: normal inspection of the chest and normal palpation of entire chest wall Resp: COMMON NORMALS: normal respiratory effort, No retractions, No use of accessory muscles and clear to auscultation bilaterally AUSCULTATION: clear to auscultation bilaterally Cardio: COMMON NORMALS: regular rate, regular rhythm, S1 normal heart sound present, No gallops present (Cardio), No murmurs present (Cardio) and No rub (Cardio) RATE: regular rate RHYTHM: regular rhythm HEART SOUNDS: S1 normal heart sound present Extremity: COMMON NORMALS: no clubbing, cyanosis or edema Urinary Catheter Management^: Herrera: Cath Placed During This Visit: yes Reason for Continuing Indwelling Catheter: Accurate Measurement of Urinary Output in Critically Ill Patients Urinary Catheter Date of Insertion: 07/26/20 Urinary Catheter Time of Insertion: 11:25 Data : 07/27/20 05:24 07/27/20 05:24 A&P Assessment and plan (1) Abnormal PET of left lung: Postop day #2. Status post left upper lobe anterior segmentectomy Plan: I will plan to discontinue chest tube midday. Chest x-ray in a.m. She continued to progress, will tentatively plan for discharge to home tomorrow. Status: Acute Attestations Medical Necessity Statement*: Status post anterior segmentectomy of the left upper lobe secondary to PET positive lung nodule Time Spent in Patient Care: less than 15 minutes Coding Level of Care Code Acute Hazard Waste Handler for Sera Caraballo Diagnoses Abnormal PET of left lung R94.2
--- NOTE | 2020-07-28 07:13 | ANE.PACU2 ---
Inpatient post-anesthesia follow up: Airway intact: Yes Vital signs: Temperature 99.1 F Pulse Rate 80 Respiratory Rate 18 Blood Pressure 142/81 Pulse Oximetry 92 Oxygen Delivery Me thod Nasal Cannula Oxygen Flow Rate 2 Fraction of Inspir ed Oxygen Hydration adequate: Yes Nausea and vomiting: No Pain level: 2 Mental status: Baseline Additional Comments: Epidural removed with tip intact, no signs of infection at epidural site
[2020-07-28] MEDS: atorvastatin 40 mg Tablet 80 MG PO (08:37)
[2020-07-28] MEDS: lisinopril 10 mg Tablet PO (08:39)
[2020-07-28] MEDS: pantoprazole DR 40 mg Tablet PO (08:39)
[2020-07-28] MEDS: hydroCHLOROthiazide 25 mg Tablet 12.5 MG PO (08:40)
[2020-07-28 10:27] LABS: Glucose Point of Care 122 mg/dL (70-110)
[2020-07-28 17:25] LABS: Glucose Point of Care 121 mg/dL (70-110)
[2020-07-28 20:45] LABS: Glucose Point of Care 132 mg/dL (70-110)
--- NOTE | 2020-07-28 22:08 | PC.NURSE ---
Patient refused to wear the intermittent pneumatic compression SCDs. This nurse explained and educated patient that the SCDs help reduce blood clots with patient stating she understands but states I feel trapped in the bed when I have them on. Patient states I am hoping to be discharged tomorrow.
[2020-07-29] VITALS (8 sets, daily range): BP systolic 126–166; BP diastolic 78–85; PULSE 72–89; RESP 16–18; TEMP 36.7–36.9; O2SAT 89–95
[2020-07-29] MEDS: HYDROcodone-acetaminophen 5-325 mg Tablet 1 TAB PO ×3 (04:25→13:08)
--- NOTE | 2020-07-29 06:00 | XR_ITS ---
WS: [id number] Portable AP upright chest, 07/29/2020 Clinical Data: POD#3 segmentectomy: Chest tube removed yesterday Comparison: Portable chest, 07/28/2020 Findings: The left chest tube has been removed and there is no pneumothorax. There is patchy opacity over the surface of the left diaphragm which may represent atelectasis and minimal effusion. There ar e clips in the right hilum. The aortic arch and descending aorta show tortuosity. Monitor leads are o n the chest wall. XR/XR chest 1V portable [id number] Impression: Removal left chest tube with no pneumothorax.
[2020-07-29] MEDS: ketorolac 30 mg/mL INJ IVP (06:07)
[2020-07-29 06:29] LABS: Glucose Point of Care 134 mg/dL (70-110)
[2020-07-29] MEDS: albuterol 8 gm MDI 2 PUFF INHALATION (07:36)
[2020-07-29] MEDS: atorvastatin 40 mg Tablet 80 MG PO (08:53)
[2020-07-29] MEDS: docusate sodium 100 mg Capsule PO (08:53)
[2020-07-29] MEDS: hydroCHLOROthiazide 25 mg Tablet 12.5 MG PO (08:54)
[2020-07-29] MEDS: lisinopril 10 mg Tablet PO (08:54)
[2020-07-29] MEDS: pantoprazole DR 40 mg Tablet PO (08:54)
--- NOTE | 2020-07-29 09:20 | PC.SOCIAL ---
Pg 2 IMM. Explained to pt Pg 2 IMM. No questions voiced. Provided pt a copy. Initialed, dated, & timed a copy & placed in chart.
[2020-07-29 11:07] LABS: Glucose Point of Care 139 mg/dL (70-110)
[2020-07-29] MEDS: chlorhexidine gluconate 4% Btl 118 mL 1 APPLIC TOPICAL (13:08)
--- NOTE | 2020-07-29 15:07 | P.DS_ITS ---
Discharge Providers Date of Admission: 07/26/20 13:58 Date of Discharge: July 29, 2020 Attending Provider at Admission: Glen Pinon MD Attending Provider at Discharge: Glen Pinon MD Primary Care Provider: NAVI Nieto Diagnoses at Discharge Discharge Diagnosis (1) Abnormal PET of left lung: Status: Acute Reason for Visit Reason for Visit: vats Hospital Course Hospital Course Ms. Hoskins is a pleasant 69-year-old female referred to our service for a PET positive lesion noted in the anterior segment of the left upper lobe. 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 She received chemotherapy postoperatively. She is followed by Dr. Hanna. The current lesion was found on routine surveillance. She has not smoked since 2018. She was electively admitted and underwent anterior segmentectomy of the left upper lobe. Pathology has returned adenocarcinoma with clear margins. Resection was limited to segmentectomy due to her prior pulmonary resection 2 years ago. Postoperatively, she has done well. Postop airleak resolved within 12 hours. She had low chest tube output. She initially convalesced in the ICU and then was transferred to the [facility]. She continues to do well. Thoracic epidural catheter has been removed. Pain is under good control with oral narcotic regimen. Incision is clean and dry. She is tolerating a diet well. Ambulating without difficulties. She will be discharged home today with home health services. At the time of discharge she is in stable condition. Physical Exam Chest: COMMONS NORMALS: normal inspection of the chest (Thoracotomy incision is healing well.) Resp: COMMON NORMALS: normal respiratory effort, No retractions, No use of accessory muscles and clear to auscultation bilaterally AUSCULTATION: clear to auscultation bilaterally Cardio: COMMON NORMALS: regular rate, regular rhythm and S1 normal heart sound present RATE: regular rate RHYTHM: regular rhythm HEART SOUNDS: S1 normal heart sound present Extremity: COMMON NORMALS: no clubbing, cyanosis or edema Urinary Catheter Management^: Herrera: Cath Placed During This Visit: yes, but has since been removed by the nurse Reason for Continuing Indwelling Catheter: Decision to DC Catheter Urinary Catheter Date of Insertion: 07/26/20 Urinary Catheter Time of Insertion: 11:25 Date Urinary Catheter Removed: 07/28/20 Time Urinary Catheter Discontinued: 10:00 Discharge Data Data Completed and Pending: Completed Studies During Hospitalization Category Date Time Status XR chest 1V [place] ble [id number] Routine Exams 07/26/20 15:00 Completed XR chest 1V [place] ble [id number] Routine Exams 07/27/20 06:00 Completed XR chest 1V cyrus ble [id number] Routine Exams 07/28/20 06:00 Completed XR chest 1V [place] ble [id number] Routine Exams 07/29/20 06:00 Completed Pathology: Surgic al [PTH] Routine Pth 07/26/20 14:46 Completed Pending at discharge Category Date Time Status CTS [Type and Scr een - Cardiac] Rou machelle Lab 07/21/20 13:12 Results Leukocyte Reduced RBC Routine Lab 07/21/20 13:12 Results Type and Screen R outine Lab 07/21/20 13:03 Uncollected Labs from last 24 hours 07/29/20 07/29/20 07/28/20 11:03 06:17 20:42 POC Glucose 139 H 134 H 132 H 07/28/20 17:01 POC Glucose 121 H Vitals: Last Vital Signs Temp 98.0 F 07/29/20 12:00 Pulse 85 07/29/20 12:00 Resp 18 07/29/20 12:00 BP 138/78 07/29/20 12:00 Pulse Ox 93 07/29/20 12:00 Discharge Plan Discharge Patient Disposition: Home Health Service Condition: Stable Prescriptions: New hydrocodone-acetaminophen 5-325 mg Tablet 1 tab PO Q6H PRN (Reason: Moderate Pain) Qty: 28 RF: 0 Continued aspirin [Adult Low Dose Aspirin] 81 mg tablet,delayed release (DR/EC) 81 mg PO DAILY@18 RF: 0 albuterol sulfate [ProAir HFA] 90 mcg/actuation HFA aerosol inhaler 2 puff INHALATION QID PRN (Reason: shortness of breath or wheezing) Qty: 6.7 RF: 0 Jardiance 10 mg tablet 10 mg PO DAILY@07 RF: 0 multivitamin Tablet 1 tab PO DAILY@07 RF: 0 cinnamon bark [Cinnamon] 500 mg capsule 500 - 1,000 mg PO DAILY@07 RF: 0 (DME) Blood Glucose Test Strip See Rx Instructions .ROUTE .MEDSUPPLY Qty: 50 RF: 5 (DME) blood-glucose meter [Blood Glucose Monitoring] Kit See Rx Instructions .ROUTE .MEDSUPPLY Qty: 1 RF: 0 (DME) lancets [BD Ultra Fine Lancets] 33 gauge misc See Rx Instructions .ROUTE .MEDSUPPLY Qty: 100 RF: 3 atorvastatin 80 mg tablet 80 mg PO DAILY@18 RF: 0 Tylenol Extra Strength 500 mg Tablet 1,000 mg PO PRN RF: 0 lisinopril-hydrochlorothiazide 10-12.5 mg tablet 1 tab PO DAILY@07 RF: 0 Discharge Orders: Discharge Order (Routine); Ordered 07/29/20 Ordered By: Glen Pinon Referrals: [facility] [Other] Discharge Diet: Usual diet Discharge Activity: Limit activity as instructed Patient Instructions: Hydrocodone/Acetaminophen (By mouth), Lung Lobectomy (DC), Acute Wound Care (GEN) Activity Restrictions/Additional Instructions: No heavy lifting or pulling x6 weeks May shower daily with dressings off. Dry incisions afterward, and recover. Use incentive spirometer frequently Report any increasing shortness of breath, increasing chest discomfort, fever, redness or drainage from incision. Discharge Attestations Time Spent in Discharge Care*: less than 30 min Specific Discharge Activities: educating patient, discussing with case worker/social workers/dc planners, documenting/other paperwork and evaluating patient/reviewing data Status at Discharge: Cognitive status at discharge: cognitively intact , Behavioral status at discharge: cooperative , Functional status at discharge: independent ambulation Overall status at discharge: patient is progressing back to baseline Quality Metrics Clinical Quality Measures During this hospital stay, did patient experience: None Coding Level of Care Code Acute Chg FW DC note Diagnoses Abnormal PET of left lung R94.2
[2020-08-02 12:12] LABS: PD-L1 (Clone 22C3) by IHC BBPL See Report
== END 2020-07-29 16:20 | disposition home health service (06) | DRG 164 ==
LOC: ICU 13:58 → MEDSURG 07-28 03:50
PROVIDERS: Admitting Provider Thoracic Surgery (Cardiothoracic Vascular Surgery); PCP Nurse Practitioner Family; Visit Provider Thoracic Surgery (Cardiothoracic Vascular Surgery)
PROC: 0BBG0ZZ Excision of Left Upper Lung Lobe, Open Approach (ICD-10-PCS; 2020-07-26 10:00)
DX: C78.02 Secondary malignant neoplasm of left lung (principal); J95.812 Postprocedural air leak; S22.32XA Fracture of one rib, left side, initial encounter for closed fracture; M96.89 Other intraoperative and postprocedural complications and disorders of the musculoskeletal system; Z85.118 Personal history of other malignant neoplasm of bronchus and lung; Z90.2 Acquired absence of lung [part of]; Z92.21 Personal history of antineoplastic chemotherapy; Z87.891 Personal history of nicotine dependence; J43.9 Emphysema, unspecified; Z79.51 Long term (current) use of inhaled steroids; Z79.82 Long term (current) use of aspirin; F41.8 Other specified anxiety disorders; E11.9 Type 2 diabetes mellitus without complications; I10 Essential (primary) hypertension; Z80.3 Family history of malignant neoplasm of breast; Z80.0 Family history of malignant neoplasm of digestive organs; K58.1 Irritable bowel syndrome with constipation; M19.90 Unspecified osteoarthritis, unspecified site; Z90.49 Acquired absence of other specified parts of digestive tract; Y65.8 Other specified misadventures during surgical and medical care; Y81.3 Surgical instruments, materials and general- and plastic-surgery devices (including sutures) associated with adverse incidents
CPT/HCPCS: 01996; 36415; 36416; 62324; 71045; 80048; 81003; 82962; 85025; 85610; 86850; 86900; 86920; 88307; 88342; 94640; 94664; 96372; 96374; 96375; J0690; J1100; J1815; J1885; J2250; J2270; J2370; J2405; J2704; J2795; J3010; J3490; J3535; J7030; P9047

== ENCOUNTER 2020-08-02 14:46 | Emergency (ER) | payer MEDICARE, BC, SELFPAY ==
[2020-08-02 15:16] VITALS: BP 163/93; PULSE 95; RESP 18; TEMP 37.2; O2SAT 94; BMI 30.2
--- NOTE | 2020-08-02 18:38 | ED_ITS ---
HPI - General Adult General: Chief complaint: General Medical Stated complaint: something wrong with surgery incision Time Seen by Provider: 08/02/20 18:38 History of Present Illness: HPI narrative: Patient is a 69-year-old female comes to the ED with surgical incision site complaint. Couple days ago patient had a surgery to get some of her left lung removed. She states today she is having increased pain around surgical site on the upper left back. She says the surgical incision site and increased redness. She denies any purulent drainage from surgical site. She rates her current pain an 8 out of 10 and says that she took a hydrocodone several hours ago. Endorses some pleuritic pain when she takes a deep breath. Denies any fever, chills chest pain or shortness of breath. Associated symptoms: Deny chest pain, dyspnea, headache(s), nausea, rash, palpitations or vomiting Review of Systems Const: Denies: fever(s), chills or fatigue Eyes: Denies: change in vision or eye discomfort ENMT: Denies: throat pain, odynophagia, nasal discharge or nasal congestion Card: Denies: chest pain, palpitations, edema, swelling of feet/ankles, dyspnea on exertion or orthopnea Resp: Denies: dyspnea, productive cough or non-productive cough GI: Denies: abdominal pain, nausea, vomiting, diarrhea, constipation or hematochezia : Denies: flank pain, dysuria or hematuria Musc: Denies: neck pain, back pain or extremity swelling Skin/Breast: Reports: surgical incision (Redness and pain around surgical incision site); Denies: rash or new lesions Neuro: Denies: headache(s), numbness in extremities or weakness in extremities PFS ED PFSH: Medical History Anxiety and depression COPD (chronic obstructive pulmonary disease) Diabetes Essential hypertension Family history of breast cancer Family history of colon cancer Irritable bowel syndrome with constipation Lung cancer Mass of left breast on mammogram Nicotine dependence Osteoarthritis Pulmonary nodule, right Stricture of sigmoid colon Vasovagal syncope Surgical History History of colon resection History of lobectomy of lung History of pneumonectomy Family History Father Hypertension Mother Hypertension Social History Smoking and tobacco status: former smoker Quit status (tobacco): has quit using tobacco Year quit tobacco: 2018 [id number] Second hand smoke exposure: Yes Smoking risk assessment/counseling performed?: Yes Alcohol intake: never Caregiver/support person: No Lives independently: Yes Household members: spouse Housing: House Marital status: service: No Current occupational status: retired Pets and animals: No History of recent travel: No Current gender identity: Female Special agustín needs: No Agree to transfusion: Yes Physical Exam Const: COMMON NORMALS: no acute distress, patient oriented x3 and alert GENERAL APPEARANCE: cooperative and comfortable HENMT: COMMON NORMALS: normocephalic HEAD & SCALP: normocephalic MOUTH: Normal oral and palatal mucosa present THROAT: posterior oropharynx normal and uvula midline Neck/C-Spine: COMMON NORMALS: supple GENERAL: Yes normal visual inspection Resp: COMMON NORMALS: normal respiratory effort, No retractions, No use of accessory muscles and clear to auscultation bilaterally AUSCULTATION: clear to auscultation bilaterally Cardio: COMMON NORMALS: regular rate, regular rhythm, S1 normal heart sound present, S2 normal heart sound present, No gallops present (Cardio), No clicks present (Cardio), No murmurs present (Cardio) and Peripheral pulses 2+ throughout RATE: regular rate RHYTHM: regular rhythm HEART SOUNDS: S1 normal heart sound present and S2 normal heart sound present PERIPHERAL PULSES: Peripheral pulses 2+ throughout GI: COMMON NORMALS: Normal to inspection, nondistended, normoactive bowel sounds present, Soft to palpation, non-tender and no masses PALPATION: Yes Soft to palpation : COMMON NORMALS: Yes no CVA tenderness BLADDER/KIDNEY EXAM: Yes no CVA tenderness Back/Pelvis: COMMON NORMALS: no CVA tenderness OTHER: Surgical incision site located on left upper back starting at inferior aspect of left shoulder blade. ?no purulent drainage seen. Erythema on the superior and posterior aspect of site. Some tenderness and slight warmth to palpation. Possibly some very mild cellulitis setting and. BACK IMAGE (FEMALE): 1. Surgical incision site?no purulent drainage seen. Erythema on the superior and posterior aspect of site. Some tenderness and slight warmth to palpation Extremity: COMMON NORMALS: normal to inspection Neuro: COMMON NORMALS: patient oriented x3 and moves all extremities SENSORIUM/ORIENTATION: Yes alert Skin: GENERAL SKIN EXAM: dry skin OTHER: Surgical incision site located on left upper back starting at inferior aspect of left shoulder blade. ?no purulent drainage seen. Erythema on the superior and posterior aspect of site. Some tenderness and slight warmth to palpation. Possibly some very mild cellulitis setting and. Course Vital Signs: Vital signs: Vital Signs Temperature 98.9 F 08/02/20 15:16 Pulse Rate 93 08/02/20 19:57 Respiratory Rate 18 08/02/20 15:16 Blood Pressure 163/93 08/02/20 15:16 Pulse Oximetry 95 08/02/20 19:57 MDM - General Adult MDM Narrative: Medical decision making narrative: Patient is a 69-year-old female comes to the ED to get surgical site evaluated. Patient had part of her lung removed a couple days ago. Patient says she has increased pain and redness around surgical site. Denies any purulent drainage. Patient appears nontoxic and in no acute distress or pain. Exam of surgical site appears to be healing well. She has some very mild erythema and warmth at the superior aspect of the surgical site. No purulent drainage seen. Some possible mild cellulitis starting to develop. Chest x-ray showed no acute findings. Patient diagnosed with pain at surgical site and I discharged her home with Keflex. Patient has follow-up with surgeon this coming , August 05. Return to ED precautions given. Patient understood agree with plan. Imaging Data^: CXR: Attestation: I personally reviewed and interpreted this imaging study as follows: My impression: Chest x-ray showed no acute findings. Discharge Plan Discharge Patient Disposition: Home Clinical Impression: Pain at surgical incision Condition: Stable Prescriptions: New cephalexin 500 mg capsule 500 mg PO Q6H 4 Days Qty: 16 RF: 0 No Action aspirin [Adult Low Dose Aspirin] 81 mg tablet,delayed release (DR/EC) 81 mg PO DAILY@18 RF: 0 albuterol sulfate [ProAir HFA] 90 mcg/actuation HFA aerosol inhaler 2 puff INHALATION QID PRN (Reason: shortness of breath or wheezing) Qty: 6.7 RF: 0 Jardiance 10 mg tablet 10 mg PO DAILY@07 RF: 0 multivitamin Tablet 1 tab PO DAILY@07 RF: 0 cinnamon bark [Cinnamon] 500 mg capsule 500 - 1,000 mg PO DAILY@07 RF: 0 (DME) Blood Glucose Test Strip See Rx Instructions .ROUTE .MEDSUPPLY Qty: 50 RF: 5 (DME) blood-glucose meter [Blood Glucose Monitoring] Kit See Rx Instructions .ROUTE .MEDSUPPLY Qty: 1 RF: 0 (DME) lancets [BD Ultra Fine Lancets] 33 gauge misc See Rx Instructions .ROUTE .MEDSUPPLY Qty: 100 RF: 3 atorvastatin 80 mg tablet 80 mg PO DAILY@18 RF: 0 Tylenol Extra Strength 500 mg Tablet 1,000 mg PO PRN RF: 0 lisinopril-hydrochlorothiazide 10-12.5 mg tablet 1 tab PO DAILY@07 RF: 0 hydrocodone-acetaminophen 5-325 mg Tablet 1 tab PO Q6H PRN (Reason: Moderate Pain) Qty: 28 RF: 0 Discharge Orders: Discharge ED (Routine); Ordered 08/02/20 Ordered By: Canelo Euceda Referrals: Ayesha Calzada FNP [Primary Care Provider] - Discharge Diet: Regular Discharge Activity: Increase activity as tolerated Activity Restrictions/Additional Instructions: Follow-up with medical provider at your scheduled appointment this . Take medications as prescribed. Return to the ER or your medical provider if condition worsens. Please read and understand discharge instructions. If any questions, please ask. 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
--- NOTE | 2020-08-02 18:39 | XRR_ITS ---
PROCEDURE INFORMATION: Exam: XR Chest Exam date and time: 08/02/2020 7:01 PM Age: 69 years old Clinical indication: Device placement; Other: RT lung surgery; Prior surgery; Patient HX: Recent lung surgery, something wrong with incision TECHNIQUE: Imaging protocol: XR of the chest. Views: 2 views. COMPARISON: CR XR chest 1V portable [id number] 07/29/2020 6:16 AM FINDINGS: Lungs: Operative changes right hilum. Volume loss on the right. Pleural spaces: See Bones/joints finding. Heart/Mediastinum: Unremarkable. No cardiomegaly. Bones/joints: old rib fractures on the left laterally. Adjacent pleural thickening. Moderate subpulmonic effusion. XR/XR chest 2V* [id number] IMPRESSION: 1. Operative changes right hilum. Volume loss on the right. 2. rib fractures on the left laterally. Adjacent pleural thickening. Moderate subpulmonic effusion. Correlate regarding trauma.
[2020-08-02] MEDS: ketorolac 60 mg/2 mL INJ IM (19:25)
[2020-08-02 19:57] VITALS: PULSE 93; O2SAT 95
== END 2020-08-02 19:55 | disposition home or self-care (01) ==
PROVIDERS: Emergency Provider Physician Assistant; PCP Nurse Practitioner Family
DX: T81.89XA Other complications of procedures, not elsewhere classified, initial encounter (principal); Z79.82 Long term (current) use of aspirin; J44.9 Chronic obstructive pulmonary disease, unspecified; E11.9 Type 2 diabetes mellitus without complications; I10 Essential (primary) hypertension; Z85.118 Personal history of other malignant neoplasm of bronchus and lung; Z90.2 Acquired absence of lung [part of]; Z87.891 Personal history of nicotine dependence
CPT/HCPCS: 71046; 96372; 99283; J1885

== ENCOUNTER 2020-08-09 10:44 | Outpatient (CLI) | payer MEDICARE, BC, SELFPAY ==
--- NOTE | 2020-08-15 20:14 | ONC FU_ITS ---
Dr. Hanna follow up note Patient: Sugar Hoskins Unit #: [id number]: [id number] Dicatated By: Valentino Hanna M.D.Date of Visit:Aug 09, 2020 Onc Med Follow-up/Prog Note History of Present Illness: Mrs. Hoskins, is a 69-year-old female who was scheduled for colonoscopy evaluation and during colonoscopy prep she had near syncopal attack. During workup for the syncopal episode an X-ray was done. It reported an incidental finding of right upper lobe lesion. Mrs Hoskins was evaluated by Dr. Pinon and she underwent right upper lobe lobectomy on 04/08/2018. Pathology reported a 4.3 x 3.7 x 2.1 cm lesion with positive lymphovascular space invasion and tumor invaded into, but not through, the pleura. Margins were clear and 0 out of 3 lymph nodes showed no metastasis. As per pathology it was T2a lesion but as per eighth addition TNM it would be T2b as it is more than 4 cm. It was N0 and M0 as PET scan showed no distant metastases except 2.5 cm activity in the hepatic flexure of the colon with SUV of 16.5. Followup colonoscopy showed evidence of diverticulitis but no malignancy in that abnormal area. Being a high risk patient, she was referred to [facility] for evaluation by Dr. Godinez , medical oncologist who concurred with adjuvant chemotherapy and recommended cisplatin/Alimta-based regimen. Ms. Hoskins began her first dose of cisplatin and Alimta on 07/02/2018. And completed recommended 4 cycles of chemotherapy with cisplatin/Alimta on 09/03/2018 f/u CT scan of chest abdomen pelvis done on November 05, 2019 showed no evidence of recurrence of disease, postoperative changes subtotal right upper and right middle lobe lobectomies, pleural thickening along the right hemidiaphragm with adjacent subsegmental atelectasis. Nodular thickening measuring 10 mm this is likely related to postoperative changes in the chest tube placement Mammogram done on June 16, 2019 showed benign findings BI-RADS 2 Follow-up CT scan of chest done on May 07, 2020 showed postoperative changes right upper and right middle lobe, no evidence of disease progression in the right lung. Nonspecific 10 mm opacity in the left upper lobe anteriorly abutting mediastinum. Small amount of nodular fibrosis in this area on the prior examination. Has significantly increased in size no mediastinal or hilar lymphadenopathy, diffuse fatty infiltration liver Follow-up CT PET scan done on May 15, 2020 shows a new soft tissue lesion at the anterior mediastinum, contiguous with the left upper lobe measuring 1.2 cm with SUV of 3.3 and postsurgical change in the right upper lung Underwent left upper lobe wedge resection on July 26, 2020 and final pathology report confirmed metastatic adenocarcinoma to the lung, based on immunohistochemistry, being CK20 positive, CEA positive, CDX positive and CK7 focally positive, favor colonic origin Came for follow-up, complaining of left chest wall pain as patient recently underwent left upper lobe wedge resection on July 26, 2020, now recovering. Patient denies any hemoptysis or hematemesis, denies any nausea or vomiting denies any diarrhea or constipation denies any fever chills denies any melena or hematochezia denies any mouth or hematemesis denies any jaundice Medications: Acetaminophen 2 Tablet (of 500 mg) Oral b.i.d., Aspirin 1 Tablet (of 81 mg) Oral daily, Atorvastatin Calcium 1 Tablet (of 80 mg) Oral daily, Farxiga 1 Tablet (of 5 mg) Oral daily, Hydrocodone-Acetaminophen 1 Tablet (of 5-325 mg) Oral at bedtime, Lisinopril-Hydrochlorothiazide 1 Tablet (of 10-12.5 mg) Oral daily Allergies: No Known Allergies. Review of Systems: Review of Systems is not available for this patient. Vital Signs: Performed on Aug 09, 2020 11:11 Height - 65.00 in Weight - 173 lbs (LOW) BSA - 1.86 sq.m BMI - 28.79 Temperature - 98.1 F (LOW) Pulse - 74 /min Respiration - 18 /min BP - 130/83 mm(hg) O2 Sat - 98 % Pain - 0 Fatigue - 8 Performance Status: 1 - No physically strenuous activity, but ambulatory and able to carry out light or sedentary work (e.g. office work, light house work). (ECOG) Physical Examination: ENMT - No mouth sores, no thrush, no jaundice, Respiratory - Lungs are clear to auscultation, Cardiovascular - Regular rate and rhythm of heart, Abdomen - Soft, Bowel sounds present, Extremities - No visible edema. Lab/Imaging: Test performed on May 07, 2020 10:34 Sodium 138 mmol/L Potassium 4.0 mmol/L Chloride 100 mmol/L CO2 25 mmol/L Anion Gap 17.0 BUN 15 mg/dL Creatinine 0.7 mg/dL Cr Clearance (Est) 101.1300 mL/min eGFR 83.2 mL/min Glucose 179 mg/dL Osmolality - Calculated 291 mOsm/kg Calcium 9.8 mg/dL Protein, Total 7.9 g/dL Albumin 4.6 g/dL Globulin 3.3 g/dL Bilirubin, Total 0.4 mg/dL ALT (SGPT) 29 U/L AST (SGOT) 29 U/L Alkaline Phosphatase 94 IU/L WBC 8.1 10 3/uL RBC 4.57 10 6/uL HGB 13.6 g/dL HCT 41.6 % MCV 91.0 fL MCH 29.8 pg MCHC 32.7 g/dL RDW 12.0 % Platelet Count 334 10 3/cmm MPV 11.6 fL Neutrophils 4.87 10 3/uL Lymphocytes 2.5 10 3/uL Monocytes 0.5 10 3/uL Eosinophils 0.1 10 3/uL Basophils 0.1 10 3/uL Neutrophil % 60.1 % Lymphocyte % 30.9 % Monocyte % 6.3 % Eosinophil % 1.6 % Basophils % 0.7 % NRBC % 0 % Impression: Metastatic adenocarcinoma to the lung, based on immunohistochemistry favor colonic region per left upper lobe wedge resection done on July 26, 2020 as Follow-up CT scan of chest done on May 07, 2020 showed postoperative change in the right upper lobe but nonspecific 10 mm opacity in the left upper lobe anteriorly abutting mediastinum , further evaluation with CT PET scan was done on May 15, 2020 confirmed new soft tissue lesion at the anterior mediastinum, contiguous with the left upper lobe measuring 1.2 cm with SUV of 3.3 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 Stage pT2b (>4 cm) N0,M0 stage IIa with a high risk feature like lymphovascular invasion, more than [address] PET scan done on 01/05/2018 showed 2.5 cm x 1.3 centimeter right upper lobe lesion with SUV of 8.8 and 2.5 cm lesion off activity in the hepatic flexure with SUV of 16.5 Follow-up colonoscopy showed diverticulitis and no evidence of malignancy in abnormal area mentioned in the CT PET scan s/p adjuvant chemotherapy for resected stage II infiltrating adenocarcinoma of the right upper lobe status post right upper lobectomy. cisplatin/Alimta for 4 cycles She began her first cycle on 07/02/2018.Completed 4 cycles of chemotherapy with cisplatin/Alimta on 09/03/2018 Plan: Discussed with patient regarding her pathology which confirmed adenocarcinoma, probably metastatic, based on immunohistochemistry favor colonic region, patient has history of colon surgery for polyp in January 2018, we will discuss with pathology and review her pathology from recent left upper lobe wedge resection as well as colon surgery done in January 2018, as per pathology metastatic adenocarcinoma rather than primary lung cancer, will consider tumor marker CEA, CA 19-9, CA-125, CA 27-29 to rule out other primaries and also consider CT PET scan as the previous CT PET scan was done in April 2020, to assess the disease status. We will also refer her to Dr. Faria to consider colonoscopy as per pathology, based on immunohistochemistry her recently diagnosed adenocarcinoma with probably metastatic disease from colon Patient return to clinic in 3 weeks with CBC CMP Signed By: Valentino Hanna M.D. <<Signature on File>>
== END 2020-08-09 10:45 | disposition home or self-care (01) ==
PROVIDERS: PCP Nurse Practitioner Family; Visit Provider Internal Medicine Hematology & Oncology
DX: C34.11 Malignant neoplasm of upper lobe, right bronchus or lung (principal); C78.2 Secondary malignant neoplasm of pleura; K57.92 Diverticulitis of intestine, part unspecified, without perforation or abscess without bleeding; Z92.21 Personal history of antineoplastic chemotherapy; Z79.899 Other long term (current) drug therapy
CPT/HCPCS: 99214

== ENCOUNTER → 2020-10-08 10:03 | Outpatient (BNVA) | payer MEDICARE, BC, SELFPAY | PROVIDERS: PCP Nurse Practitioner Family; Visit Provider Surgery | DX: Z20.822 Contact with and (suspected) exposure to COVID-19 (principal) | CPT/HCPCS: 87635 ==

== ENCOUNTER 2020-10-13 07:13 | Day surgery (SDC) | payer MEDICARE, BC, SELFPAY ==
[2020-10-11 09:47] VITALS: BMI 28.8
--- NOTE | 2020-10-13 07:34 | ANES.PREANE2 ---
Pre-Anesthetic Assessment Pre-Anesthetic Assessment: Height/Weight: Height 1.65 m Weight 78.471 kg Preop Diagnosis: Metastatic colorectal cancer Proposed Procedure: Operation Date: 10/13/20 08:45 Proposed Procedures p Colonoscopy 79553 c19.0(Not Applicable) - Toro Faria MD Familial anesthetic complications: None Was Beta Oscar taken within 24 hours: N/A Was Clonidine taken within 24 hours: N/A Last intake: > 8 hrs Social: Social History: No alcohol and No tobacco Exam: Pre-Anes Outpt Exam: alert, oriented x 3, clear to auscultation bilaterally and regular rate & rhythm Airway: Cervical ROM: WNL MP: 2 Dentition: False Pulmonary: Pulmonary: COPD Comments: Lobectomy in july CV/HEM: CV/HEM: HTN Metabolic: Metabolic: DM Anesthetic Plan: ASA status: 3 Anesthesia: MAC Risk of > 500 ml blood loss (7ml/kg in children): No PFSH Anesthesia PFSH: Medical History Anxiety and depression COPD (chronic obstructive pulmonary disease) Diabetes Essential hypertension Family history of breast cancer Family history of colon cancer Irritable bowel syndrome with constipation Lung cancer Mass of left breast on mammogram Nicotine dependence Osteoarthritis Pulmonary nodule, right Stricture of sigmoid colon Vasovagal syncope Surgical History History of colon resection History of lobectomy of lung History of pneumonectomy Family History Father Hypertension Mother Hypertension Social History Smoking and tobacco status: former smoker Quit status (tobacco): has quit using tobacco Year quit tobacco: 2017 [id number] Second hand smoke exposure: Yes Smoking risk assessment/counseling performed?: Yes Alcohol intake: never Caregiver/support person: No Lives independently: Yes Household members: spouse Housing: House Marital status: service: No Current occupational status: retired Pets and animals: No History of recent travel: No Current gender identity: Female Special agustín needs: No Agree to transfusion: Yes Data Anesthesia Cardiac Studies: No Data to Display
[2020-10-13 08:13] VITALS: BP 180/132; PULSE 92; RESP 18; TEMP 36.8; O2SAT 98
[2020-10-13 08:14] LABS: Glucose Point of Care 176 mg/dL (70-110)
[2020-10-13] MEDS: sodium chloride 0.9% 1,000 ML 30 ML IV (08:16)
--- NOTE | 2020-10-13 08:22 | W.PM.OPSUD ---
Surgery/Procedure H&P Update DATE OF PROCEDURE: October 13, 2020 DATE H&P PERFORMED: 09/13/20 H&P UPDATE INFORMATION: I have reviewed H&P completed within last 30 days, I have examined patient prior to procedure and No changes to prior documentation PREOP DIAGNOSIS: Metastatic colorectal cancer PRIMARY INDICATION FOR PROCEDURE: The same patient is coming today for surveillance colonoscopy PLANNED PROCEDURE: Operation Date: 10/13/20 08:45 Proposed Procedures p Colonoscopy 00775 c19.0(Not Applicable) - Toro Faria MD
[2020-10-13 09:22] VITALS: BP 116/74; PULSE 89; RESP 16; TEMP 36.5; O2SAT 96
--- NOTE | 2020-10-13 09:23 | ANE.PACU2 ---
Inpatient post-anesthesia follow up: Airway intact: Yes Vital signs: Temperature 97.7 F Pulse Rate 89 Respiratory Rate 16 Blood Pressure 116/74 Pulse Oximetry 96 Oxygen Delivery Me thod Room Air Oxygen Flow Rate Fraction of Inspir ed Oxygen Hydration adequate: Yes Nausea and vomiting: No Pain level: 1 Mental status: Baseline
[2020-10-13 09:33] VITALS: BP 129/89; PULSE 94; RESP 18; O2SAT 97
== END 2020-10-13 09:48 | disposition home or self-care (01) ==
PROVIDERS: PCP Nurse Practitioner Family; Visit Provider Surgery
PROC: 0DJD8ZZ Inspection of Lower Intestinal Tract, Via Natural or Artificial Opening Endoscopic (ICD-10-PCS; CPT 45378; principal; 2020-10-13 08:45)
DX: Z12.11 Encounter for screening for malignant neoplasm of colon (principal); K63.89 Other specified diseases of intestine; Z85.038 Personal history of other malignant neoplasm of large intestine; J44.9 Chronic obstructive pulmonary disease, unspecified; I10 Essential (primary) hypertension; E11.9 Type 2 diabetes mellitus without complications; Z80.3 Family history of malignant neoplasm of breast; Z80.0 Family history of malignant neoplasm of digestive organs; Z80.1 Family history of malignant neoplasm of trachea, bronchus and lung; M19.90 Unspecified osteoarthritis, unspecified site; Z87.891 Personal history of nicotine dependence
CPT/HCPCS: 36416; 45378; 82962; 96360; J2704; J7030

== ENCOUNTER → 2020-11-11 09:47 | Outpatient (BNVA) | payer MEDICARE, BC, SELFPAY | PROVIDERS: PCP Nurse Practitioner Family; Visit Provider Nurse Practitioner Family | DX: E11.65 Type 2 diabetes mellitus with hyperglycemia (principal); I10 Essential (primary) hypertension; E78.5 Hyperlipidemia, unspecified; C34.11 Malignant neoplasm of upper lobe, right bronchus or lung | CPT/HCPCS: 80053; 80061; 83036; 85025 ==

== ENCOUNTER 2020-11-17 12:15 | Outpatient (CLI) | payer MEDICARE, BC, SELFPAY ==
[2020-11-17 12:47] LABS: Basophils # 0.1 10^3/uL (0.0-0.1); Basophils % 0.6 %; Eosinophils # 0.2 10^3/uL (0.0-0.8); Lymphocytes # 2.6 10^3/uL (0.8-4.8); Lymphocytes % 32.4 %; Mean Corpuscular HGB Conc 32.5 g/dL (30.0-36.0); Mean Corpuscular Hemoglobin 29.5 pg (28.0-34.0); Mean Corpuscular Volume 90.9 fL (81-99); Mean Platelet Volume 10.8 fL (7.4-10.4); Monocytes # 0.6 10^3/uL (0.2-0.9); Monocytes % 7.4 %; Neutrophils # 4.66 10^3/uL (1.8-7.7); Neutrophils % 57.1 %; Nucleated Red Blood Cells % 0 %; Platelet Count 288 10^3/cmm (130-400); Red Cell Distribution Width 13.3 % (12.1-15.1); White Blood Count 8.2 10^3/uL (4.0-10.0)
[2020-11-17 13:37] LABS: Alanine Aminotransferase 22 U/L (0-33); Albumin Level 4.2 g/dL (3.5-5.2); Alkaline Phosphatase 79 IU/L (35-105); Aspartate Amino Transferase 22 U/L (0-32); Blood Urea Nitrogen 16 mg/dL (8-23); Cancer Antigen 19 9 12.15 U/mL (0-35); Carbon Dioxide 21 mmol/L (22-29); Chloride 103 mmol/L (98-107); Globulin 2.8 g/dL (1.3-4.6); Glucose 125 mg/dL (65-115); Osmolality Calculated 291 mOsm/kg (285-295); Sodium 139 mmol/L (136-145); Total Bilirubin 0.2 mg/dL (0.15-1.2)
[2020-11-17 14:57] LABS: Carcinoembryonic Antigen 1.1 ng/mL (0.0-4.7)
--- NOTE | 2020-11-17 17:10 | ONC FU_ITS ---
Dr. Hanna follow up note Patient: Sugar Hoskins Unit #: [id number]: 1950 Dicatated By: Valentino Hanna M.D.Date of Visit:Nov 17, 2020 Onc Med Follow-up/Prog Note History of Present Illness: Mrs. Hoskins, is a 69-year-old female who was scheduled for colonoscopy evaluation and during colonoscopy prep she had near syncopal attack. During workup for the syncopal episode an X-ray was done. It reported an incidental finding of right upper lobe lesion. Mrs Hoskins was evaluated by Dr. Pinon and she underwent right upper lobe lobectomy on 04/08/2018. Pathology reported a 4.3 x 3.7 x 2.1 cm lesion with positive lymphovascular space invasion and tumor invaded into, but not through, the pleura. Margins were clear and 0 out of 3 lymph nodes showed no metastasis. As per pathology it was T2a lesion but as per eighth addition TNM it would be T2b as it is more than 4 cm. It was N0 and M0 as PET scan showed no distant metastases except 2.5 cm activity in the hepatic flexure of the colon with SUV of 16.5. Followup colonoscopy showed evidence of diverticulitis but no malignancy in that abnormal area. Being a high risk patient, she was referred to [facility] for evaluation by Dr. Godinez , medical oncologist who concurred with adjuvant chemotherapy and recommended cisplatin/Alimta-based regimen. Ms. Hoskins began her first dose of cisplatin and Alimta on 07/02/2018. And completed recommended 4 cycles of chemotherapy with cisplatin/Alimta on 09/03/2018 f/u CT scan of chest abdomen pelvis done on November 05, 2019 showed no evidence of recurrence of disease, postoperative changes subtotal right upper and right middle lobe lobectomies, pleural thickening along the right hemidiaphragm with adjacent subsegmental atelectasis. Nodular thickening measuring 10 mm this is likely related to postoperative changes in the chest tube placement Mammogram done on June 16, 2019 showed benign findings BI-RADS 2 Follow-up CT scan of chest done on May 07, 2020 showed postoperative changes right upper and right middle lobe, no evidence of disease progression in the right lung. Nonspecific 10 mm opacity in the left upper lobe anteriorly abutting mediastinum. Small amount of nodular fibrosis in this area on the prior examination. 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 EGD was unremarkable Follow-up CT PET scan done on November 13, 2020 showed the anterior mediastinal lesion seen on prior study has been resected, there has been development of new lingular nodule measuring 1.2 cm with SUV of 1.8. This Low-grade activity, suspicious for recurrence, given the prior history. A questionable 1.4 cm right lung base nodule is difficult to characterize secondary to respiratory motion. Came for follow-up, denies any specific complaints, no fever chills, no nausea or vomiting, no diarrhea or constipation, no hemoptysis or hematemesis, no headaches no blurred vision double vision, no abdominal pain, patient was supposed to come back in 3 weeks from her last visit in July 2020 with EGD colonoscopy and CT PET scan but as per patient as she was recovering from her thoracic surgery, she postponed her EGD colonoscopy for September and she got her PET scan done in October and now she is here to discuss further management Medications: Acetaminophen 2 Tablet (of 500 mg) Oral b.i.d., Aspirin 1 Tablet (of 81 mg) Oral daily, Atorvastatin Calcium 1 Tablet (of 80 mg) Oral daily, Farxiga 1 Tablet (of 5 mg) Oral daily, Hydrocodone-Acetaminophen 1 Tablet (of 5-325 mg) Oral at bedtime, Lisinopril-Hydrochlorothiazide 1 Tablet (of 10-12.5 mg) Oral daily Allergies: No Known Allergies. Review of Systems: Review of Systems is not available for this patient. Vital Signs: Performed on Nov 17, 2020 14:25 Height - 65.00 in Weight - 182 lbs (HIGH) BSA - 1.90 sq.m BMI - 30.29 (HIGH) Temperature - 97.4 F (LOW) Pulse - 90 /min Respiration - 18 /min BP - 160/90 mm(hg) (HIGH) O2 Sat - 96 % Pain - 0 Performance Status: 0 - Fully active, able to carry on all predisease activities without restrictions. (ECOG) Physical Examination: ENMT - No mouth sores, no thrush, no jaundice no cervical lymphadenopathy, Respiratory - Lungs are clear to auscultation, Cardiovascular - Regular rate and rhythm of heart, Abdomen - Soft, bowel sounds present, Extremities - No visible edema. Lab/Imaging: Most recent lab results are not available for this patient. 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 Stage pT2b (>4 cm) N0,M0 stage IIa with a high risk feature like lymphovascular invasion, more than [address] PET scan done on 01/05/2018 showed 2.5 cm x 1.3 centimeter right upper lobe lesion with SUV of 8.8 and 2.5 cm lesion off activity in the hepatic flexure with SUV of 16.5 Follow-up colonoscopy showed diverticulitis and no evidence of malignancy in abnormal area mentioned in the CT PET scan s/p adjuvant chemotherapy for resected stage II infiltrating adenocarcinoma of the right upper lobe status post right upper lobectomy. cisplatin/Alimta for 4 cycles She began her first cycle on 07/02/2018.Completed 4 cycles of chemotherapy with cisplatin/Alimta on 09/03/2018 Plan: Discussed with patient regarding her labs white blood count 8.2 hemoglobin thirteen hematocrit forty platelets a hundred eighty-eight thousand CMP within normal limits except glucose one twenty-five CA 19???9 12.15 CA-125 22.0 and CEA within normal limits and follow-up CT PET scan which shows new lesion in the lingula with a low activity and questionable lesion in right lung base Clinically, patient doing well with no new signs symptom suggestive of recurrence of disease but her follow-up CT PET scan shows 1.4 cm lingular lesion with SUV of 1.8 and questionable lesion in the right lung base which was not seen clearly due to respiratory motion and her tumor marker CEA is within normal range and other tumor markers including CA 19???9 or CA-125 is also within normal range and her colonoscopy/EGD shows no evidence of recurrence of disease as her resected lung lesion pathology was consistent with metastatic disease from colorectal. At this point, patient is asymptomatic, her CT PET scan shows questionable lesion in the right lung base and 1.4 cm with low FDG activity in the lingula, and discussed with patient regarding biopsy of lingular lesion or repeating CT scan of chest in 1 month and if there is increase in size then considering biopsy otherwise monitoring as her work-up include EGD and colonoscopy showed no abnormality tumor marker is within normal range. Patient opted for follow-up CT scan in 1 month and then plan accordingly, if there is a growth, will consider biopsy. Return to clinic in 1 month with CBC CMP and follow-up CT scan of chest Signed By: Valentino Hanna M.D. <<Signature on File>>
[2020-11-18 10:13] LABS: CA 27.29 13 U/mL (<38)
== END 2020-11-17 12:16 | disposition home or self-care (01) ==
LOC: ONCMED 12:19
PROVIDERS: PCP Nurse Practitioner Family; Visit Provider Internal Medicine Hematology & Oncology
DX: Z08 Encounter for follow-up examination after completed treatment for malignant neoplasm (principal); Z85.118 Personal history of other malignant neoplasm of bronchus and lung; K57.92 Diverticulitis of intestine, part unspecified, without perforation or abscess without bleeding; R97.8 Other abnormal tumor markers; Z79.899 Other long term (current) drug therapy; Z92.21 Personal history of antineoplastic chemotherapy
CPT/HCPCS: 36415; 80053; 82378; 85025; 86300; 86301; 86304; 99214

== ENCOUNTER 2020-12-14 11:08 | Outpatient (CLI) | payer MEDICARE, BC, SELFPAY ==
--- NOTE | 2020-12-14 12:28 | CTR_ITS ---
PROCEDURE INFORMATION: Exam: CT Chest With Contrast; Diagnostic Exam date and time: 12/14/2020 12:28 PM Age: 70 years old Clinical indication: Restaging evaluation of primary lung cancer. TECHNIQUE: Imaging protocol: Diagnostic computed tomography of the chest with contrast. Radiation optimization: All CT scans at this facility use at least one of these dose optimization techniques: automated exposure control; mA and/or kV adjustment per patient size (includes targeted exams where dose is matched to clinical indication); or iterative reconstruction. Contrast material: OMNI 300; Contrast volume: 95 ml; Contrast route: INTRAVENOUS (IV); COMPARISON: CT chest abd pel w con* 11/05/2019 11:28 AM RADIATION DOSE METRICS: Total DLP (mGy-cm): 1497.41 FINDINGS: Lungs: There is mild scarring at the lung bases. There is a nodule in the lingula that has slightly increased in size by report measuring 1.2 x 1.6 cm; previously 1.0 x 1.5 cm. A nodular structure at the right base measures fat density and likely reflects subpleural fat. There has been prior lobectomy on the right. Pleural spaces: No pleural effusion.; No pneumothorax. Heart: Coronary arterial calcifications are noted. No pericardial effusion. Mediastinal space: Small hiatal hernia. Pulmonary arteries: No main or central pulmonary embolus. Aorta: No thoracic aortic aneurysm. No thoracic aortic dissection. Lymph nodes: No significant mediastinal lymphadenopathy. Bones/joints: There has been prior right thoracotomy. IMPRESSION: 1. A nodule in the lingula has increased slightly in size concerning for worsening metastasis. Fleischner society guidelines regarding pulmonary nodule follow-up do not apply in the setting of malignancy. 2. Coronary artery disease. PROCEDURE INFORMATION: Exam: CT Abdomen And Pelvis With Contrast Exam date and time: 12/14/2020 12:28 PM Age: 70 years old Clinical indication: Restaging evaluation of primary lung cancer. TECHNIQUE: Imaging protocol: Computed tomography of the abdomen and pelvis with contrast. Radiation optimization: All CT scans at this facility use at least one of these dose optimization techniques: automated exposure control; mA and/or kV adjustment per patient size (includes targeted exams where dose is matched to clinical indication); or iterative reconstruction. Contrast material: OMNI 300; Contrast volume: 95 ml; Contrast route: INTRAVENOUS (IV); COMPARISON: CT chest abd pel w con* 11/05/2019 11:28 AM RADIATION DOSE METRICS: Total DLP (mGy-cm): 1497.41 FINDINGS: Liver: The liver is enlarged measuring 22.7 cm. Simple left hepatic cyst measures 0.9 cm. Gallbladder and bile ducts: The gallbladder is unremarkable. Pancreas: The pancreas is unremarkable. Spleen: The spleen is unremarkable. Adrenal glands: The adrenal glands are unremarkable. Kidneys and ureters: The kidneys are unremarkable. Stomach and bowel: The stomach and small bowel are unremarkable.; There has been probable prior partial sigmoid resection. Appendix: The appendix is unremarkable. Intraperitoneal space: No free intraperitoneal air is seen. Vasculature: No abdominal aortic aneurysm. Lymph nodes: A periportal lymph node measures 1.1 x 2.2 cm. Urinary bladder: The bladder is largely decompressed. Reproductive: Cystic lesion in the right adnexa measuring 1.2 cm. Bones/joints: No acute fracture is identified. Soft tissues: Small fat containing umbilical hernia. CT/CT chest abd pel w con* IMPRESSION: 1. No definite evidence of metastatic disease in the abdomen and pelvis. 2. Hepatomegaly with mild periportal lymphadenopathy. 3. Cystic lesion in the right adnexa. Recommend nonemergent pelvic ultrasound to better characterize. Radiation Dose CTDIVOL = (mGy): DLP = 1497.41~1497.41 (mGy-cm)
[2020-12-14 12:34] LABS: Basophils # 0.1 10^3/uL (0.0-0.1); Basophils % 0.7 %; Eosinophils # 0.2 10^3/uL (0.0-0.8); Hematocrit 43.2 % (37.0-47.0); Hemoglobin 14.3 g/dL (11.5-15.3); Lymphocytes # 2.7 10^3/uL (0.8-4.8); Lymphocytes % 30.4 %; Mean Corpuscular HGB Conc 33.1 g/dL (30.0-36.0); Mean Corpuscular Hemoglobin 30.4 pg (28.0-34.0); Mean Corpuscular Volume 91.7 fl (81-99); Mean Platelet Volume 11.5 fL (7.4-10.4); Monocytes # 0.7 10^3/uL (0.2-0.9); Neutrophils % 58.7 %; Nucleated Red Blood Cells % 0 %; Platelet Count 324 10^3/cmm (130-400); Red Blood Count 4.71 10^6/uL (4.1-5.3); Red Cell Distribution Width 13.2 % (12.1-15.1); White Blood Count 8.9 10^3/uL (4.0-10.0)
[2020-12-14 13:06] LABS: Alanine Aminotransferase 28 U/L (0-33); Albumin Level 4.5 g/dL (3.5-5.2); Alkaline Phosphatase 86 IU/L (35-105); Anion Gap 17.1 (5-19); Aspartate Amino Transferase 27 U/L (0-32); Blood Urea Nitrogen 22 mg/dL (8-23); Calcium 9.7 mg/dL (8.5-10.5); Carbon Dioxide 24 mmol/L (22-29); Chloride 101 mmol/L (98-107); Globulin 3.1 g/dL (1.3-4.6); Glomerular Filtration Rate 62.1 mL/min (90-130); Glucose 166 mg/dL (65-115); Osmolality Calculated 293 mOsm/kg (285-295); Potassium 4.1 mmol/L (3.5-5.1); Sodium 138 mmol/L (136-145); Total Bilirubin 0.3 mg/dL (0.15-1.2); Total Protein 7.6 g/dL (6.6-8.7)
[2020-12-14] MEDS: iohexol 300 mg/mL 100 mL Btl IV (13:41)
[2020-12-14] MEDS: iohexol 300 mg/mL 50 mL Btl PO (13:42)
== END 2020-12-14 11:09 | disposition home or self-care (01) ==
PROVIDERS: PCP Nurse Practitioner Family; Visit Provider Internal Medicine Hematology & Oncology
DX: C34.11 Malignant neoplasm of upper lobe, right bronchus or lung (principal); I25.10 Atherosclerotic heart disease of native coronary artery without angina pectoris; R16.0 Hepatomegaly, not elsewhere classified; N94.89 Other specified conditions associated with female genital organs and menstrual cycle
CPT/HCPCS: 36415; 71260; 74177; 80053; 85025; Q9967

== ENCOUNTER 2020-12-20 13:55 | Outpatient (CLI) | payer MEDICARE, BC, SELFPAY ==
--- NOTE | 2020-12-20 15:31 | ONC FU_ITS ---
Dr. Hanna follow up note Patient: Sugar Hoskins Unit #: [id number]: 1950 Dicatated By: Valentino Hanna M.D.Date of Visit:Dec 20, 2020 Onc Med Follow-up/Prog Note History of Present Illness: Mrs. Hoskins, is a 70-year-old female who was scheduled for colonoscopy evaluation and during colonoscopy prep she had near syncopal attack. During workup for the syncopal episode an X-ray was done. It reported an incidental finding of right upper lobe lesion. Mrs Hoskins was evaluated by Dr. Pinon and she underwent right upper lobe lobectomy on 04/08/2018. Pathology reported a 4.3 x 3.7 x 2.1 cm lesion with positive lymphovascular space invasion and tumor invaded into, but not through, the pleura. Margins were clear and 0 out of 3 lymph nodes showed no metastasis. As per pathology it was T2a lesion but as per eighth addition TNM it would be T2b as it is more than 4 cm. It was N0 and M0 as PET scan showed no distant metastases except 2.5 cm activity in the hepatic flexure of the colon with SUV of 16.5. Followup colonoscopy showed evidence of diverticulitis but no malignancy in that abnormal area. Being a high risk patient, she was referred to [facility] for evaluation by Dr. Godinez , medical oncologist who concurred with adjuvant chemotherapy and recommended cisplatin/Alimta-based regimen. Ms. Hoskins began her first dose of cisplatin and Alimta on 07/02/2018. And completed recommended 4 cycles of chemotherapy with cisplatin/Alimta on 09/03/2018 f/u CT scan of chest abdomen pelvis done on November 05, 2019 showed no evidence of recurrence of disease, postoperative changes subtotal right upper and right middle lobe lobectomies, pleural thickening along the right hemidiaphragm with adjacent subsegmental atelectasis. Nodular thickening measuring 10 mm this is likely related to postoperative changes in the chest tube placement Mammogram done on June 16, 2019 showed benign findings BI-RADS 2 Follow-up CT scan of chest done on May 07, 2020 showed postoperative changes right upper and right middle lobe, no evidence of disease progression in the right lung. Nonspecific 10 mm opacity in the left upper lobe anteriorly abutting mediastinum. Small amount of nodular fibrosis in this area on the prior examination. 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 EGD was unremarkable Follow-up CT PET scan done on November 13, 2020 showed the anterior mediastinal lesion seen on prior study has been resected, there has been development of new lingular nodule measuring 1.2 cm with SUV of 1.8. This Low-grade activity, suspicious for recurrence, given the prior history. A questionable 1.4 cm right lung base nodule is difficult to characterize secondary to respiratory motion. Follow-up CT scan of chest done on December 14, 2020 showed clear nodule in the lingula has increased slightly in size concerning for worsening of metastasis when compared with CT scan of chest abdomen pelvis done on November 05, 2019 at that time left lingular mass was 1 x 1.5 cm, now 1.2 x 1.6 cm and nodular structure at the right base measures fat density and likely reflects subpleural fat. Came for follow-up, denies any specific complaints, no fever chills, no nausea or vomiting, no diarrhea constipation, no hemoptysis or hematemesis Medications: Acetaminophen 2 Tablet (of 500 mg) Oral b.i.d., Aspirin 1 Tablet (of 81 mg) Oral daily, Atorvastatin Calcium 1 Tablet (of 80 mg) Oral daily, Farxiga 1 Tablet (of 5 mg) Oral daily, Hydrocodone-Acetaminophen 1 Tablet (of 5-325 mg) Oral at bedtime, Lisinopril-Hydrochlorothiazide 1 Tablet (of 10-12.5 mg) Oral daily Allergies: No Known Allergies. Review of Systems: Review of Systems is not available for this patient. Vital Signs: Vitals are not available for this patient. Performance Status: 0 - Fully active, able to carry on all predisease activities without restrictions. (ECOG) Physical Examination: ENMT - No mouth sores, no thrush, no jaundice, Respiratory - Lungs are clear to auscultation, Cardiovascular - Regular rate and rhythm of heart, Abdomen - Soft, bowel sounds present, Extremities - No visible edema or rash. Lab/Imaging: Most recent lab results are not available for this patient. 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 Stage pT2b (>4 cm) N0,M0 stage IIa with a high risk feature like lymphovascular invasion, more than [address] PET scan done on 01/05/2018 showed 2.5 cm x 1.3 centimeter right upper lobe lesion with SUV of 8.8 and 2.5 cm lesion off activity in the hepatic flexure with SUV of 16.5 Follow-up colonoscopy showed diverticulitis and no evidence of malignancy in abnormal area mentioned in the CT PET scan s/p adjuvant chemotherapy for resected stage II infiltrating adenocarcinoma of the right upper lobe status post right upper lobectomy. cisplatin/Alimta for 4 cycles She began her first cycle on 07/02/2018.Completed 4 cycles of chemotherapy with cisplatin/Alimta on 09/03/2018 Plan: Discussed with patient regarding her follow-up CT scan of chest which showed persistent left lingular mass but right lung base mass, which was seen on CT PET scan from October 2020, measures fat density likely reflects subpleural fat. Radiologist compared CT scan of the chest done on December 14, [address] scan of chest abdomen pelvis done on November 05, 2019 and start of comparing with PET scan from October 2020, so we will request radiologist for comparison moreover considering no significant change when compared with CT chest from October 2019, at this point, will continue to monitor and then she will return to clinic in 3 months with CBC CMP and follow-up CT PET scan, in the meantime we will request Dr. Pinon to evaluate her CT PET scan from October 2020 as well as follow-up CT chest done on December 14, 2020. Patient was advised to call us in case there is any new symptoms any hemoptysis or hematemesis or any new bony pains. Signed By: Valentino Hanna M.D. <<Signature on File>>
== END 2020-12-20 13:56 | disposition home or self-care (01) ==
LOC: ONCMED 13:58
PROVIDERS: PCP Nurse Practitioner Family; Visit Provider Internal Medicine Hematology & Oncology
DX: C78.02 Secondary malignant neoplasm of left lung (principal); C34.11 Malignant neoplasm of upper lobe, right bronchus or lung; Z79.899 Other long term (current) drug therapy; Z79.82 Long term (current) use of aspirin
CPT/HCPCS: 99214

== ENCOUNTER → 2021-05-06 11:23 | Outpatient (BNVA) | payer MEDICARE, BC, SELFPAY | PROVIDERS: PCP Nurse Practitioner Family; Visit Provider Nurse Practitioner Family | DX: E78.5 Hyperlipidemia, unspecified (principal); E11.65 Type 2 diabetes mellitus with hyperglycemia; I10 Essential (primary) hypertension; C34.11 Malignant neoplasm of upper lobe, right bronchus or lung | CPT/HCPCS: 80053; 80061; 83036; 85025 ==

== ENCOUNTER → 2021-12-06 08:37 | Outpatient (BNVA) | payer MEDICARE, BC, SELFPAY | PROVIDERS: PCP Nurse Practitioner Family; Visit Provider Nurse Practitioner Family | DX: E11.65 Type 2 diabetes mellitus with hyperglycemia (principal); E78.5 Hyperlipidemia, unspecified; I10 Essential (primary) hypertension | CPT/HCPCS: 80053; 80061; 82043; 83036; 84443; 85025 ==

== ENCOUNTER 2022-02-08 13:29 | Emergency (ER) | payer MEDICARE, BC, SELFPAY ==
[2022-02-08 13:36] VITALS: BP 132/69; PULSE 92; RESP 14; TEMP 36.8; O2SAT 95; BMI 26.8
--- NOTE | 2022-02-08 13:58 | CT_ITS ---
WS: [id number] CT HEAD TECHNIQUE: Noncontrast CT of the head obtained from the skullbase to the vertex. CLINICAL INFORMATION: Symptoms of Acute Stroke COMPARISON: None. DLP: [address] scans at [facility] use at least one of these dose optimization techniques: automated e xposure control; mA and/or kV adjustment per patient size (includes targeted exams where dose is matc hed to clinical indication); or iterative reconstruction. FINDINGS: Intraparenchymal hematoma within the RIGHT frontal lobe measuring 2.8 x 2.4 x 2.1 cm AP by transverse by craniocaudal suspicious for hemorrhagic metastatic lesion. Lesion is located at the white-white ju nction with a large amount of surrounding edema within the frontal and parietal lobes. Mild mass effe ct in the RIGHT lateral ventricle with mild RIGHT to LEFT midline shift measuring 2 to 3 mm. No hydro cephalus. Normal LEFT lateral ventricle. No ventricular trapping. Normal 3rd ventricle. Normal 4th ve ntricle. No extra-axial fluid collections. Suprasellar cistern and basilar cisterns remain patent. Paranasal sinuses and mastoid air cells well aerated. Normal posterior nasopharynx. No other visualized lesions . Paranasal sinuses and mastoid air cells are well aerated. .Normal visualized soft tissues. CT/CT head thrombolytic [id number] IMPRESSION: 1. Hemorrhagic lesion RIGHT frontal lobe measuring 2.8 x 2.4 2.1 cm suspicious for hemorrhagic metastatic lesion at the white-white junction considering clini emir history. 2. Large amount of surrounding edema in the RIGHT frontal and parietal white m atter with mild mass effect in the RIGHT lateral ventricle. Mild RIGHT to LEFT midline shift measuring 2-3 mm. No hydrocephalus. 3. Basilar cisterns and 4th ventricle remain patent. 4. No other visualized lesions. MRI without and with gadolinium would be more sensitive in further evaluation. 5. No other suspicious findings. Notified Jamir Toro DO at 02/08/2022 2:54 PM.
--- NOTE | 2022-02-08 13:58 | ECG_ITS ---
[facility] Test Date: 2022-02-08 Pat Name: Sugar Hoskins Department: Room: Gender: Female Check Out Cashier: : 1950 Requested By: Jamir Toro Order Number: [id number] Pool MD: Hardy Bonilla M.D. Measurements Intervals [place] Rate: 98 P: 60 VT: 134 QRS: 22 QRSD: 93 T: 79 QT: 340 QTc: 436 Interpretive Statements SINUS RHYTHM NONSPECIFIC T-WAVE ABNORMALITY Compared to ECG 09/04/2018 10:10:37 Ventricular premature complex(es) no longer present T-wave abnormality still present Electronically Signed On 02-08-2022 22:43:49 CDT by Hardy Bonilla M.D. [email or web address]
--- NOTE | 2022-02-08 14:05 | ED_ITS ---
HPI - Neuro Symptoms/Deficit General: Chief Complaint: Neuro Symptoms/Deficit Stated Complaint: Sent from clinic, possible stroke Time Seen by Provider: 02/08/22 13:47 Source: patient and family Mode of arrival: ambulatory Limitations: no limitations History of Present Illness: This patient was referred to the emergency department from primary care clinic. Patient states that she has been feeling ill over the past couple weeks predominantly with some nausea and decreased intake. She attributes this to glipizide which was recently started in her primary care office. She states her sugars were elevated and that medication was started because of that condition. He states she has not rechecked her blood sugars at home and is uncertain whether in fact it has controlled her sugars. She states she has felt constipated. However on Sunday she awoke and noted her left hand and forearm did not seem to be working as it normally does. Those symptoms have persisted and therefore she was referred here. She denies headache, difficulty speech, seizure activity, or other neurologic symptoms. There has been no prior history of similar symptoms. Location: left arm History of same: No Severity: mild Quality: weak Context: sudden onset (Present upon awakening) Associated symptoms: Reports no associated symptoms and nausea; Deny chest pain, headache(s), vertigo or vomiting Review of Systems Const: Denies: fever(s) or chills Eyes: Denies: change in vision ENMT: Denies: throat pain, odynophagia, disequilibrium, nasal discharge or nasal congestion Card: Denies: chest pain, palpitations or irregular heart rhythm Resp: Denies: dyspnea, productive cough or non-productive cough GI: Reports: nausea and constipation; Denies: abdominal pain, vomiting or hematochezia : Denies: flank pain, difficulty voiding, dysuria or urinary frequency Musc: Denies: neck pain, back pain, extremity pain or extremity swelling Skin/Breast: Denies: rash or pruritus Neuro: Reports: weakness in extremities and lack of coordination (Left hand); Denies: headache(s), dizziness, vertigo or Slurred speech present Psych: Denies: anxiety or depression Endo: Reports: polyuria Juan/Lymph: Denies: easy bruising or easy bleeding PFSH ED PFSH: Medical History Anxiety and depression COPD (chronic obstructive pulmonary disease) Diabetes Essential hypertension Family history of breast cancer Family history of colon cancer Irritable bowel syndrome with constipation Lung cancer Mass of left breast on mammogram Nicotine dependence Osteoarthritis Pulmonary nodule, right Stricture of sigmoid colon Vasovagal syncope Surgical History History of colon resection History of lobectomy of lung History of pneumonectomy Family History Father Hypertension Mother Hypertension Social History Smoking and tobacco status: former smoker (quit 2017) Quit status (tobacco): has quit using tobacco Year quit tobacco: 2018 [id number] Second hand smoke exposure: Yes Smoking risk assessment/counseling performed?: Yes Alcohol intake: never Caregiver/support person: No Lives independently: Yes Household members: spouse Housing: House Marital status: service: No Current occupational status: retired Pets and animals: No History of recent travel: No Current gender identity: Female Special agustín needs: No Agree to transfusion: Yes NIH stroke score NIHSS: Level Of Consciousness - 1a: 0 Level Of Consciousness Questions - 1b: Both Correct Level Of Consciousness Commands - 1c: Both Correct Best Gaze - 2: Normal Visual Garcia - 3: No Visual Loss Facial Palsy - 4: Normal Motor Arm Right - 5: No Drift Motor Arm Left - 5: Drift Motor Leg Right - 6: No Drift Motor Leg Left - 6: No Drift Limb Ataxia - 7: Present In One Limb Sensory - 8: Normal Best Language - 9: No Aphasia Dysarthia - 10: Normal Extinction And Inattention - 11: 0 Score: Total Score: 2 Physical Exam Narrative: EXAM NARRATIVE: She is alert makes good eye contact. Speech is goal-directed and fluent. Const: COMMON NORMALS: no acute distress, average body habitus and patient oriented x3 GENERAL APPEARANCE: cooperative and comfortable HENMT: COMMON NORMALS: normocephalic, Normal nasal mucous membranes and turbinates present, moist oral mucous membranes and oropharynx normal HEAD & SCALP: normocephalic FACE & SINUS: normal facial exam and face symmetric NOSE: Normal nasal mucous membranes and turbinates present Eye: COMMON NORMALS: Equal, round and reactive pupils present, EOMs intact bilaterally, conjunctivae normal and no scleral icterus CONJUNCTIVA: Yes conjunctivae normal PUPIL: Yes Equal, round and reactive pupils present Neck/C-Spine: COMMON NORMALS: full ROM, no lymphadenopathy, supple and No carotid bruits Chest: COMMONS NORMALS: normal inspection of the chest Resp: COMMON NORMALS: normal respiratory effort, No use of accessory muscles and clear to auscultation bilaterally EFFORT & INSPECTION: Yes able to speak in complete sentences AUSCULTATION: clear to auscultation bilaterally Cardio: COMMON NORMALS: regular rate, regular rhythm, No murmurs present (Cardio) and Peripheral pulses 2+ throughout RATE: regular rate RHYTHM: regular rhythm PERIPHERAL PULSES: Peripheral pulses 2+ throughout GI: COMMON NORMALS: Normal to inspection, nondistended, normoactive bowel sounds present, Soft to palpation, non-tender and no masses PALPATION: Yes Soft to palpation : COMMON NORMALS: Yes no CVA tenderness BLADDER/KIDNEY EXAM: Yes no CVA tenderness Back/Pelvis: COMMON NORMALS: no CVA tenderness, thoracic and lumbar spine normal to inspection, no thoracic nor lumbar tenderness, thoraco-lumbar ROM normal and straight leg raise negative bilaterally Extremity: COMMON NORMALS: normal to inspection, full ROM, capillary refill normal, no calf tenderness and no pedal edema Neuro: COMMON NORMALS: patient oriented x3, no sensory deficits noted and gait normal CRANIAL NERVES: Yes CN normal except as noted OTHER: Motor examination is remarkable for some clumsiness of the left hand and wrist flexor distributor advertising material region. She is able to move her left forearm at the elbow and her left arm at the shoulder normally. She has some mild drift of the left forearm but this is very minimal. Left leg is remarkable for very minimal drift but otherwise no focal weakness. Psych: COMMON NORMALS: mental status grossly normal and Normal thought process present THOUGHT PROCESS: Normal thought process present Skin: COMMON NORMALS: no rashes or lesions noted, no wounds and turgor normal GENERAL SKIN EXAM: no rashes or lesions noted and turgor normal Course Reevaluation(s): Reevaluation #1: Discussed CT findings with radiologist. Current findings suggest hemorrhagic transformation of a metastatic lesion in her right superior parietal region. Time: 14:52 Reevaluation #2: I informed the patient of her findings. She will be given 10 mg of Decadron IV to help with cerebral edema. We will discuss with oncology regarding plan for continued care. She is currently clinically stable. Time: 14:45 Consultations: Consultation #1: Discussed with Dr. Hanna from oncology who made arrangements for her to see radiation oncology tomorrow at 2:30 PM. Time: 16:22 Vital Signs: Vital signs: Vital Signs Temperature 98.3 F 02/08/22 13:36 Pulse Rate 92 02/08/22 13:36 Respiratory Rate 14 02/08/22 13:36 Blood Pressure 132/69 02/08/22 13:36 Pulse Oximetry 95 02/08/22 13:36 Oxygen Delivery Me thod 02/08/22 13:36 MDM - Neuro Symptoms/Deficit Medical Decision Making Patient who presented to the emergency department from primary care office after awakening with left-sided clumsiness and weakness was found to have a metastatic lesion in her right parietal with some surrounding edema consistent with likely metastatic adenocarcinoma from her previous lung cancer. She is clinically stable and has a very supportive family. We were able to make arrangements through oncology for her to see radiation oncology tomorrow to begin radiation therapy. We have also initiated Decadron therapy to help with associated edema. She is stable at this time and understanding of the plan of care. Her spouse is present and also understood current plan of care. We also discussed return precautions in detail. Medical Records I reviewed the patient's medical records. Lab Data I reviewed the patient's lab results. : 02/08/22 14:35 02/08/22 14:[address] 02/08/22 13:58 IMPRESSION: 1. Hemorrhagic lesion RIGHT frontal lobe measuring 2.8 x 2.4 2.1 cm suspicious for hemorrhagic metastatic lesion at the white-white junction considering clinical history. 2. Large amount of surrounding edema in the RIGHT frontal and parietal white matter with mild mass effect in the RIGHT lateral ventricle. Mild RIGHT to LEFT midline shift measuring 2-3 mm. No hydrocephalus. 3. Basilar cisterns and 4th ventricle remain patent. 4. No other visualized lesions. MRI without and with gadolinium would be more sensitive in further evaluation. 5. No other suspicious findings. Notified Jamir Toro DO at 02/08/2022 2:54 PM. Laboratory Results WBC 10.9 10^3/uL (4.0-10.0) H 02/08/22 14:35 Corrected WBC Cancelled 02/08/22 14:15 RBC 4.66 10^6/uL (4.1-5.3) 02/08/22 14:35 Hgb 14.2 g/dL (11.5-15.3) 02/08/22 14:35 Hct 42.6 % (37.0-47.0) 02/08/22 14:35 MCV 91.4 fl (81-99) 02/08/22 14:35 MCH 30.5 pg (28.0-34.0) 02/08/22 14:35 MCHC 33.3 g/dL (30.0-36.0) 02/08/22 14:35 RDW 12.5 % (12.1-15.1) 02/08/22 14:35 Plt Count 337 10^3/cmm (130-400) 02/08/22 14:35 MPV 10.7 fL (7.4-10.4) H 02/08/22 14:35 Gran % Cancelled 02/08/22 14:15 Neut % (Auto) 77.3 % 02/08/22 14:35 Lymph % (Auto) 16.4 % 02/08/22 14:35 [place] % (Auto) 5.2 % 02/08/22 14:35 Eos % (Auto) 0.2 % 02/08/22 14:35 Baso % (Auto) 0.4 % 02/08/22 14:35 Neut # (Auto) 8.41 10^3/uL (1.8-7.7) H 02/08/22 14:35 Lymph # (Auto) 1.8 10^3/uL (0.8-4.8) 02/08/22 14:35 [place] # (Auto) 0.6 10^3/uL (0.2-0.9) 02/08/22 14:35 Eos # (Auto) 0.0 10^3/uL (0.0-0.8) 02/08/22 14:35 Baso # (Auto) 0.0 10^3/uL (0.0-0.1) 02/08/22 14:35 Absolute Gran (auto) Cancelled 02/08/22 14:15 Nucleated RBC % (auto) 0 % 02/08/22 14:35 Nucleated RBCs # 0.0 /100WBC 02/08/22 14:35 PT 13.80 SECONDS (12.1-14.9) 02/08/22 15:02 INR 1.03 (0.8-1.2) 02/08/22 15:02 APTT 24.0 SECONDS (23.9-36.7) 02/08/22 15:02 Sodium 135 mmol/L (136-145) L 02/08/22 14:15 Potassium 4.0 mmol/L (3.5-5.1) 02/08/22 14:15 Chloride 96 mmol/L (98-107) L 02/08/22 14:15 Carbon Dioxide 21 mmol/L (22-29) L 02/08/22 14:15 Anion Gap 22.0 (5-19) H 02/08/22 14:15 BUN 30 mg/dL (8-23) H 02/08/22 14:15 Creatinine 0.9 mg/dL (0.5-0.9) 02/08/22 14:15 GFR Calculation 61.9 mL/min (90-130) L 02/08/22 14:15 Glucose 117 mg/dL (65-115) H 02/08/22 14:15 POC Glucose 122 mg/dL (70-110) H 02/08/22 14:22 Calculated Osmolality 287 mOsm/kg (285-295) 02/08/22 14:15 Calcium 10.3 mg/dL (8.5-10.5) 02/08/22 14:15 Total Bilirubin 0.5 mg/dL (0.15-1.2) 02/08/22 14:15 AST 35 U/L (0-32) H 02/08/22 14:15 ALT 33 U/L (0-33) 02/08/22 14:15 Alkaline Phosphatase 79 U/L (35-105) 02/08/22 14:15 Total Protein 8.3 g/dL (6.6-8.7) 02/08/22 14:15 Albumin 4.7 g/dL (3.5-5.2) 02/08/22 14:15 Globulin 3.6 g/dL (1.3-4.6) 02/08/22 14:15 Discharge Plan Discharge Patient Disposition: Home Clinical Impression: Metastatic adenocarcinoma Condition: Stable Prescriptions: New dexamethasone 4 mg tablet See Rx Instructions .ROUTE .COMPLEX Qty: 60 0RF Rx Instructions: 4 mg orally QID for 2 days; 4 mg orally TID for 2 days, 4 mg orally thereafter ondansetron HCl 4 mg tablet 4 mg PO Q8H PRN (Reason: nausea and vomiting) 5 Days Qty: 20 0RF No Action aspirin [Adult Low Dose Aspirin] 81 mg tablet,delayed release (DR/EC) 81 mg PO DAILY@18 multivitamin Tablet 1 tab PO DAILY@07 cinnamon bark [Cinnamon] 500 mg capsule 500 - 1,000 mg PO DAILY@07 (DME) Blood Glucose Test Strip See Rx Instructions .ROUTE .MEDSUPPLY Qty: 50 5RF Rx Instructions: check blood sugar daily as directed (DME) blood-glucose meter [Blood Glucose Monitoring] Kit See Rx Instructions .ROUTE .MEDSUPPLY Qty: 1 0RF Rx Instructions: check blood sugar daily as directed (DME) lancets [BD Ultra Fine Lancets] 33 gauge misc See Rx Instructions .ROUTE .MEDSUPPLY Qty: 100 3RF Rx Instructions: check blood sugar daily as directed dapagliflozin 10 mg tablet 10 mg PO DAILY Qty: 90 1RF albuterol sulfate [ProAir HFA] 90 mcg/actuation HFA aerosol inhaler 2 puff INHALATION QID PRN (Reason: shortness of breath or wheezing) Qty: 8.5 3RF glipizide 5 mg tablet extended release 24 hr 5 mg PO DAILY Qty: 90 1RF acetaminophen [Tylenol Extra Strength] 500 mg Tablet 1,000 mg PO PRN PRN (Reason: Pain) atorvastatin 80 mg tablet 80 mg PO QPM ondansetron HCl 4 mg tablet 4 mg PO Q8H PRN (Reason: Nausea And Vomiting) meclizine 25 mg tablet 12.5 - 25 mg PO BID PRN (Reason: dizziness) lisinopril-hydrochlorothiazide 10-12.5 mg tablet 1 tab PO DAILY Discharge Orders: Discharge ED (Routine); Ordered 02/08/22 Ordered By: Jamir Toro Referrals: Denis Nazario MD [Hospitalist] - 1-3 days (Dr Hanna directed pt to come [id number]) Ayesha Calzada FNP [Primary Care Provider] - Discharge Diet: Usual diet Patient Instructions: Opioid Safety, Pain Management Activity Restrictions/Additional Instructions: We have prescribed Decadron to take as prescribed to help with swelling. We have also prescribed or dancer Jac to help with any nausea. Go to Dr. Nazario office at radiation oncology at 230 tomorrow 09 February. If you have any worsening or concerning symptoms return to the emergency department immediately. Coding Level of Care Code ED [employer] Operations Duty Manager for Sera Caraballo Exam Comprehensive
[2022-02-08 14:34] LABS: Glucose Point of Care 122 mg/dL (70-110)
[2022-02-08 14:40] LABS: Basophils % 0.4 %; Eosinophils % 0.2 %; Hematocrit 42.6 % (37.0-47.0); Hemoglobin 14.2 g/dL (11.5-15.3); Lymphocytes # 1.8 10^3/uL (0.8-4.8); Lymphocytes % 16.4 %; Mean Corpuscular HGB Conc 33.3 g/dL (30.0-36.0); Mean Corpuscular Hemoglobin 30.5 pg (28.0-34.0); Mean Corpuscular Volume 91.4 fl (81-99); Mean Platelet Volume 10.7 fL (7.4-10.4); Monocytes # 0.6 10^3/uL (0.2-0.9); Monocytes % 5.2 %; Neutrophils # 8.41 10^3/uL (1.8-7.7); Neutrophils % 77.3 %; Nucleated Red Blood Cells % 0 %; Red Blood Count 4.66 10^6/uL (4.1-5.3); Red Cell Distribution Width 12.5 % (12.1-15.1); White Blood Count 10.9 10^3/uL (4.0-10.0)
[2022-02-08 14:41] VITALS: BP 139/115; PULSE 10; RESP 16; O2SAT 95
[2022-02-08 14:43] LABS: Alanine Aminotransferase 33 U/L (0-33); Albumin Level 4.7 g/dL (3.5-5.2); Alkaline Phosphatase 79 U/L (35-105); Aspartate Amino Transferase 35 U/L (0-32); Blood Urea Nitrogen 30 mg/dL (8-23); Calcium 10.3 mg/dL (8.5-10.5); Carbon Dioxide 21 mmol/L (22-29); Chloride 96 mmol/L (98-107); Globulin 3.6 g/dL (1.3-4.6); Glomerular Filtration Rate 61.9 mL/min (90-130); Glucose 117 mg/dL (65-115); Osmolality Calculated 287 mOsm/kg (285-295); Sodium 135 mmol/L (136-145); Total Bilirubin 0.5 mg/dL (0.15-1.2); Total Protein 8.3 g/dL (6.6-8.7)
[2022-02-08 15:00] VITALS: BP 140/91; PULSE 93; RESP 16; O2SAT 96
[2022-02-08 15:09] LABS: Platelet Count 337 10^3/cmm (130-400); Slide Review Slide Review Perform
--- NOTE | 2022-02-08 15:20 | PC.NURSE ---
PT PLACED ON CONTINUOUS NIBP,SPO2, AND CM
[2022-02-08 15:28] LABS: INR 1.03 (0.8-1.2)
[2022-02-08] MEDS: dexamethasone 10 mg/mL INJ IVP (15:33)
[2022-02-08 16:30] VITALS: BP 144/99; PULSE 91; RESP 17; O2SAT 95
== END 2022-02-08 16:52 | disposition home or self-care (01) ==
PROVIDERS: Emergency Provider Emergency Medicine; PCP Nurse Practitioner Family
DX: C79.31 Secondary malignant neoplasm of brain (principal); Z85.118 Personal history of other malignant neoplasm of bronchus and lung; Z79.82 Long term (current) use of aspirin; Z79.84 Long term (current) use of oral hypoglycemic drugs; Z87.891 Personal history of nicotine dependence; J44.9 Chronic obstructive pulmonary disease, unspecified; E11.9 Type 2 diabetes mellitus without complications; I10 Essential (primary) hypertension; Z90.2 Acquired absence of lung [part of]
CPT/HCPCS: 36416; 70450; 80053; 82962; 85025; 85610; 85730; 93005; 96374; 99285; J1100

== ENCOUNTER 2022-02-20 10:37 | Oncology outpatient (recurring) (ONCR) | payer MEDICARE, BC, SELFPAY ==
--- NOTE | 2022-02-09 14:05 | N.ONRAD NP_ITS ---
Radiation Oncology Consultation Patient Name: Sugar Hoskins Date of : 1950 Date of Service: 02/09/2022 Attending Physician: Denis Nazario M.D. Sugar Hoskins was seen in consultation this afternoon at the request of Vic Hanna M.D. 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 The patient was initially diagnosed with an adenocarcinoma of the right upper lobe of the right lung in March 2018 (pathologic stage IIIA-T2aN0) following an evaluation for a right upper lobe lesion incidentally identified during a syncopal evaluation. Adjuvant chemotherapy included 4 cycles of cisplatin and Alimta that was prescribed between the dates of July 02, 2018 through September 03, 2018. Surveillance PET scan obtained in April 2020 identified a 1.2 cm left upper lobe nodule (SUV 3.3). A left upper lobe wedge resection was performed on July 26, 2020. Pathology confirmed metastatic adenocarcinoma that favored a colonic primary (CEA positive). An EGD and colonoscopy did not reveal a malignancy. During a recent appointment with her primary care physician, she described left upper extremity weakness and nausea. She was referred to the [facility] Emergency Department. A CT scan of the head ordered (independently visualized in [facility]apse) on February 08, 2022 demonstrated a 2.8 cm x 2.4 cm x 2.1 cm hemorrhagic lesion within the right frontal lobe white-white junction associated with a 2 to 3 mm right to left midline shift. The patient was referred for palliative cranial radiotherapy. I reviewed with The National Comprehensive Cancer Network Guidelines for limited brain metastases recommending consideration for surgery or radiotherapy for inoperable patients. The potential toxicities of stereotactic radiosurgery and WBRT were reviewed. The patient verbalized understanding and would like to proceed with a neurosurgical consultation. The patient???s treatment plan was discussed with Vic Hanna M.D. Signed by: Dr. Denis Nazario 02/09/2022 2:04:07 PM
--- NOTE | 2022-02-16 | CT_ITS ---
Radiation Therapy Planning CT images; total exam DLP: 330.94 mGy-cm MTDD
== END 2022-02-20 23:59 | disposition home or self-care (01) ==
PROVIDERS: Absent Provider Internal Medicine Hematology & Oncology; PCP Nurse Practitioner Family; Visit Provider Radiology Radiation Oncology
DX: Z51.0 Encounter for antineoplastic radiation therapy (principal); C79.31 Secondary malignant neoplasm of brain
CPT/HCPCS: 77280; 77290; 77295; 77300; 77334; 77412; 99205

== ENCOUNTER 2022-03-14 13:45 | Oncology outpatient (recurring) (ONCR) | payer MEDICARE, BC, SELFPAY ==
--- NOTE | 2022-02-23 11:51 | ONCRAD TMN_ITS ---
Radiation Oncology Treatment Management Note Patient Name: Sugar Hoskins Date of : 1950 Date of Service: 02/23/2022 Attending Physician: Denis Nazario M.D. Sugar Hoskins is a 71 year old white female diagnosed with non-small cell lung cancer and brain metastases. The patient was initially diagnosed with an adenocarcinoma of the right upper lobe of the right lung in March 2018 (pathologic stage IIIA-T2aN0) following an evaluation for a right upper lobe lesion incidentally identified during a syncopal evaluation. Adjuvant chemotherapy included 4 cycles of cisplatin and Alimta that was prescribed between the dates of July 02, 2018 through September 03, 2018. Surveillance PET scan obtained in April 2020 identified a 1.2 cm left upper lobe nodule (SUV 3.3). A left upper lobe wedge resection was performed on July 26, 2020. Pathology confirmed metastatic adenocarcinoma that favored a colonic primary (CEA positive). An EGD and colonoscopy did not reveal a malignancy. During a recent appointment with her primary care physician, she described left upper extremity weakness and nausea. She was referred to the [facility] Emergency Department. A CT scan of the head ordered on February 08, 2022 demonstrated a 2.8 cm x 2.4 cm x 2.1 cm hemorrhagic lesion within the right frontal lobe yang-white junction associated with a 2 to 3 mm right to left midline shift. She was referred for neurosurgical evaluation at [facility] in [place], [place]. Surgical intervention was not recommended. CT imaging identified bilateral pulmonary masses and an indeterminate liver lesion. The patient has received 16 Gy of a prescribed 20 Yang with a 3-dimensional conformal radiotherapy plan utilizing a half beam block treatment technique with opposed lateral portal daly. Upon review of systems, she described improvement with the left upper extremity paresis. On physical examination, the patient weighed 155 lbs. Her temperature was 97.8 ???F and the blood pressure was 109/72 mmHg. Her pulse was 64 bpm and the respiratory rate was 16. Cranial nerves were intact. Continue whole brain radiotherapy as planned. Signed by: Dr. Denis Nazario 02/23/2022 11:50:36 AM
--- NOTE | 2022-02-24 10:49 | N.ONRD TS_ITS ---
Radiation OncologyTreatment Summary Patient Name: Sugar Hoskins Date of : 1950 Date of Service: 02/24/2022 Attending Physician: Denis Nazario M.D. Sugar Hoskins has completed cranial radiotherapy for the management of a non-small cell lung cancer and brain metastases. The patient was initially diagnosed with an adenocarcinoma of the right upper lobe of the right lung in March 2018 (pathologic stage IIIA-T2aN0) following an evaluation for a right upper lobe lesion incidentally identified during a syncopal evaluation. Adjuvant chemotherapy included 4 cycles of cisplatin and Alimta that was prescribed between the dates of July 02, 2018 through September 03, 2018. Surveillance PET scan obtained in April 2020 identified a 1.2 cm left upper lobe nodule (SUV 3.3). A left upper lobe wedge resection was performed on July 26, 2020. Pathology confirmed metastatic adenocarcinoma that favored a colonic primary (CEA positive). An EGD and colonoscopy did not reveal a malignancy. During a recent appointment with her primary care physician, she described left upper extremity weakness and nausea. She was referred to the [facility] Emergency Department. A CT scan of the head ordered on February 08, 2022 demonstrated a 2.8 cm x 2.4 cm x 2.1 cm hemorrhagic lesion within the right frontal lobe white-white junction associated with a 2 to 3 mm right to left midline shift. She was referred for neurosurgical evaluation at [facility] in [place], [place]. Surgical intervention was not recommended. CT imaging identified bilateral pulmonary masses and an indeterminate liver lesion. Daily radiotherapy was administered between the dates February 20, 2002 through February 24, 2022. A prescribed dose of 20 Gy was delivered in 5 fractions encompassing 5 elapsed days. The cranial fossa was treated utilizing a 3-dimensional conformal radiotherapy plan with an opposed lateral portal field design and a half-beam treatment technique. The left lateral port employed a gantry angle of 90??? and a collimator angle of 318???. The field size measured 11 cm x11 cm within X-direction and 16.5 cm x 0 cm within the Y-direction. The measured SSD was 91.6 cm with the field allocating 210 monitor units. The right lateral field utilized a 270??? gantry angle with a collimator angle of 45???. The field size measured 11 cm x 11 cm within the X-direction and 16.5 cm x 0 cm within the Y-direction. The SSD measured 93.2 cm with the port delivering 200 monitor units. All treatments were performed with the The [email or web address] iX linear accelerator and an isocentric technique. The dose was calculated by Anisotropic Analytic Algorithm. Photon energies of 15 MV were prescribed with the plan normalized to deliver 100% of the prescription dose to 99.9% of the planning target volume. Signed by: Dr. Denis Nazario 02/27/2022 1:44:49 PM
[2022-02-24 11:31] LABS: Basophils % 0.1 %; Eosinophils # 0.1 10^3/uL (0.0-0.8); Eosinophils % 0.4 %; Hematocrit 44.5 % (37.0-47.0); Hemoglobin 15.2 g/dL (11.5-15.3); Lymphocytes # 0.7 10^3/uL (0.8-4.8); Lymphocytes % 4.2 %; Mean Corpuscular HGB Conc 34.2 g/dL (30.0-36.0); Mean Corpuscular Hemoglobin 29.6 pg (28.0-34.0); Mean Corpuscular Volume 86.7 fl (81-99); Mean Platelet Volume 10.3 fL (7.4-10.4); Monocytes # 0.6 10^3/uL (0.2-0.9); Monocytes % 3.6 %; Neutrophils # 14.57 10^3/uL (1.8-7.7); Neutrophils % 90.8 %; Nucleated Red Blood Cells % 0 %; Platelet Count 317 10^3/cmm (130-400); Red Blood Count 5.13 10^6/uL (4.1-5.3); Red Cell Distribution Width 12.1 % (12.1-15.1)
[2022-02-24 11:50] LABS: Alanine Aminotransferase 44 U/L (0-33); Albumin Level 4.2 g/dL (3.5-5.2); Alkaline Phosphatase 53 U/L (35-105); Anion Gap 18.3 (5-19); Aspartate Amino Transferase 21 U/L (0-32); Blood Urea Nitrogen 37 mg/dL (8-23); Carbon Dioxide 20 mmol/L (22-29); Chloride 96 mmol/L (98-107); Globulin 2.5 g/dL (1.3-4.6); Glomerular Filtration Rate 82.7 mL/min (90-130); Glucose 93 mg/dL (65-115); Osmolality Calculated 278 mOsm/kg (285-295); Potassium 4.3 mmol/L (3.5-5.1); Sodium 130 mmol/L (136-145); Total Bilirubin 0.5 mg/dL (0.15-1.2); Total Protein 6.7 g/dL (6.6-8.7)
--- NOTE | 2022-02-27 12:36 | PC.NURSE ---
labs drawn via peripheral venipuncture to R AC x1 attempt
[2022-03-14 13:47] LABS: Basophils % 0.3 %; Eosinophils % 0.2 %; Hematocrit 41.4 % (37.0-47.0); Hemoglobin 13.6 g/dL (11.5-15.3); Lymphocytes % 9.7 %; Mean Corpuscular HGB Conc 32.9 g/dL (30.0-36.0); Mean Corpuscular Hemoglobin 29.4 pg (28.0-34.0); Mean Corpuscular Volume 89.6 fl (81-99); Mean Platelet Volume 9.5 fL (7.4-10.4); Monocytes # 0.4 10^3/uL (0.2-0.9); Monocytes % 4.2 %; Neutrophils # 8.42 10^3/uL (1.8-7.7); Neutrophils % 84.3 %; Nucleated Red Blood Cells % 0 %; Platelet Count 322 10^3/cmm (130-400); Red Blood Count 4.62 10^6/uL (4.1-5.3); Red Cell Distribution Width 13.2 % (12.1-15.1)
[2022-03-14 14:08] LABS: Alanine Aminotransferase 38 U/L (0-33); Albumin Level 3.9 g/dL (3.5-5.2); Alkaline Phosphatase 52 U/L (35-105); Anion Gap 18.6 (5-19); Aspartate Amino Transferase 17 U/L (0-32); Blood Urea Nitrogen 25 mg/dL (8-23); Calcium 9.8 mg/dL (8.5-10.5); Carbon Dioxide 24 mmol/L (22-29); Chloride 101 mmol/L (98-107); Globulin 3.1 g/dL (1.3-4.6); Glomerular Filtration Rate 82.7 mL/min (90-130); Glucose 118 mg/dL (65-115); Osmolality Calculated 293 mOsm/kg (285-295); Potassium 4.6 mmol/L (3.5-5.1); Sodium 139 mmol/L (136-145); Total Bilirubin 0.4 mg/dL (0.15-1.2)
== END 2022-03-22 23:59 | disposition home or self-care (01) ==
PROVIDERS: Internal Medicine Medical Oncology; Absent Provider Internal Medicine Hematology & Oncology; PCP Nurse Practitioner Family; Visit Provider Radiology Radiation Oncology
DX: C34.11 Malignant neoplasm of upper lobe, right bronchus or lung (principal); C79.31 Secondary malignant neoplasm of brain; C78.01 Secondary malignant neoplasm of right lung; C78.7 Secondary malignant neoplasm of liver and intrahepatic bile duct; C79.72 Secondary malignant neoplasm of left adrenal gland; Z90.2 Acquired absence of lung [part of]; Z95.828 Presence of other vascular implants and grafts; Z79.52 Long term (current) use of systemic steroids; Z79.899 Other long term (current) drug therapy; Z87.891 Personal history of nicotine dependence
CPT/HCPCS: 36415; 77336; 77412; 80053; 85025; 99024; 99214

== ENCOUNTER → 2022-03-20 14:26 | Outpatient (BNVA) | payer MEDICARE, BC, SELFPAY | PROVIDERS: PCP Nurse Practitioner Family; Visit Provider Surgery | DX: C34.11 Malignant neoplasm of upper lobe, right bronchus or lung (principal) | CPT/HCPCS: 99213 ==

== ENCOUNTER 2022-03-24 09:19 | Oncology outpatient (recurring) (ONCR) | payer MEDICARE, BC, SELFPAY ==
[2022-03-24 09:45] LABS: Basophils # 0.1 10^3/uL (0.0-0.1); Basophils % 0.5 %; Eosinophils % 0.1 %; Hematocrit 42.9 % (37.0-47.0); Lymphocytes # 1.1 10^3/uL (0.8-4.8); Lymphocytes % 8.7 %; Mean Corpuscular HGB Conc 32.6 g/dL (30.0-36.0); Mean Corpuscular Hemoglobin 29.8 pg (28.0-34.0); Mean Corpuscular Volume 91.3 fl (81-99); Mean Platelet Volume 9.8 fL (7.4-10.4); Monocytes # 0.9 10^3/uL (0.2-0.9); Monocytes % 7.4 %; Neutrophils # 9.86 10^3/uL (1.8-7.7); Neutrophils % 81.1 %; Nucleated Red Blood Cells % 0 %; Platelet Count 485 10^3/cmm (130-400); Red Cell Distribution Width 14.5 % (12.1-15.1); White Blood Count 12.2 10^3/uL (4.0-10.0)
[2022-03-24 10:06] LABS: Alanine Aminotransferase 31 U/L (0-33); Alkaline Phosphatase 54 U/L (35-105); Anion Gap 18.8 (5-19); Aspartate Amino Transferase 20 U/L (0-32); Blood Urea Nitrogen 28 mg/dL (8-23); Calcium 9.8 mg/dL (8.5-10.5); Carbon Dioxide 23 mmol/L (22-29); Chloride 98 mmol/L (98-107); Globulin 3.4 g/dL (1.3-4.6); Glomerular Filtration Rate 82.7 mL/min (90-130); Glucose 88 mg/dL (65-115); Osmolality Calculated 287 mOsm/kg (285-295); Potassium 3.8 mmol/L (3.5-5.1); Sodium 136 mmol/L (136-145); Total Bilirubin 0.7 mg/dL (0.15-1.2); Total Protein 7.4 g/dL (6.6-8.7)
== END 2022-04-22 23:59 | disposition home or self-care (01) ==
LOC: ONCMED 09:20
PROVIDERS: Absent Provider Internal Medicine Hematology & Oncology; PCP Nurse Practitioner Family; Visit Provider Radiology Radiation Oncology
DX: C34.11 Malignant neoplasm of upper lobe, right bronchus or lung (principal); C79.31 Secondary malignant neoplasm of brain; C78.01 Secondary malignant neoplasm of right lung; C78.02 Secondary malignant neoplasm of left lung; C78.7 Secondary malignant neoplasm of liver and intrahepatic bile duct; C79.72 Secondary malignant neoplasm of left adrenal gland; C79.51 Secondary malignant neoplasm of bone; Z79.52 Long term (current) use of systemic steroids; Z79.899 Other long term (current) drug therapy; Z87.891 Personal history of nicotine dependence
CPT/HCPCS: 36415; 80053; 85025; 99214

== ENCOUNTER 2022-05-03 11:05 | Oncology outpatient (recurring) (ONCR) | payer MEDICARE, BC, SELFPAY ==
[2022-05-03 12:35] LABS: Basophils % 0.5 %; Hematocrit 36.4 % (37.0-47.0); Hemoglobin 12.1 g/dL (11.5-15.3); Lymphocytes # 0.9 10^3/uL (0.8-4.8); Lymphocytes % 11.1 %; Mean Corpuscular HGB Conc 33.2 g/dL (30.0-36.0); Mean Corpuscular Hemoglobin 31.3 pg (28.0-34.0); Mean Corpuscular Volume 94.3 fl (81-99); Mean Platelet Volume 10.1 fL (7.4-10.4); Monocytes # 0.3 10^3/uL (0.2-0.9); Monocytes % 4.2 %; Neutrophils # 6.17 10^3/uL (1.8-7.7); Neutrophils % 76.6 %; Nucleated Red Blood Cells # 0.1 /100WBC; Nucleated Red Blood Cells % 0.6 %; Platelet Count 377 10^3/cmm (130-400); Red Blood Count 3.86 10^6/uL (4.1-5.3); Red Cell Distribution Width 17.7 % (12.1-15.1); White Blood Count 8.1 10^3/uL (4.0-10.0)
[2022-05-03 12:57] LABS: Slide Review Slide Review Perform
[2022-05-03 13:00] LABS: Alanine Aminotransferase 36 U/L (0-33); Albumin Level 3.8 g/dL (3.5-5.2); Alkaline Phosphatase 59 U/L (35-105); Anion Gap 17.3 (5-19); Aspartate Amino Transferase 16 U/L (0-32); Blood Urea Nitrogen 30 mg/dL (8-23); Calcium 8.6 mg/dL (8.5-10.5); Carbon Dioxide 24 mmol/L (22-29); Chloride 97 mmol/L (98-107); Glucose 166 mg/dL (65-115); Osmolality Calculated 288 mOsm/kg (285-295); Potassium 4.3 mmol/L (3.5-5.1); Sodium 134 mmol/L (136-145); Total Bilirubin 0.5 mg/dL (0.15-1.2); Total Protein 6.8 g/dL (6.6-8.7)
== END 2022-05-23 23:59 | disposition home or self-care (01) ==
PROVIDERS: Absent Provider Internal Medicine Hematology & Oncology; PCP Nurse Practitioner Family; Visit Provider Nurse Practitioner
DX: C34.11 Malignant neoplasm of upper lobe, right bronchus or lung (principal); R53.1 Weakness; R11.2 Nausea with vomiting, unspecified; C79.31 Secondary malignant neoplasm of brain; C78.02 Secondary malignant neoplasm of left lung; C78.7 Secondary malignant neoplasm of liver and intrahepatic bile duct; C79.72 Secondary malignant neoplasm of left adrenal gland; Z79.899 Other long term (current) drug therapy; Z95.828 Presence of other vascular implants and grafts; R19.7 Diarrhea, unspecified; Z87.891 Personal history of nicotine dependence
CPT/HCPCS: 36415; 80053; 85025; 99215

== ENCOUNTER 2022-05-12 07:21 | Emergency (ER) | payer MEDICARE, BC, SELFPAY ==
[2022-05-12] VITALS (7 sets, daily range): BP systolic 88–114; BP diastolic 58–76; PULSE 101–111; RESP 19–27; TEMP 36.7; O2SAT 90–98; BMI 24.0
--- NOTE | 2022-05-12 07:30 | ECG_ITS ---
[facility] Test Date: 2022-05-12 Pat Name: Sugar Hoskins Department: Room: Gender: Female Convertible Sofa Bedspring Tester: : 1950 Requested By: Agatha Lomeli Order Number: [id number] Pool MD: Rhett Moreno M.D. Measurements Intervals [place] Rate: 107 P: 59 AK: 129 QRS: 14 QRSD: 93 T: 119 QT: 323 QTc: 432 Interpretive Statements SINUS TACHYCARDIA ST DEVIATION AND MODERATE T-WAVE ABNORMALITY, CONSIDER LATERAL ISCHEMIA [-0.1+ mV T-WAVE IN I/aVL/V5/V6] Compared to ECG 02/08/2022 14:28:54 Possible ischemia now present Sinus rhythm no longer present T-wave abnormality still present Electronically Signed On 05-12-2022 14:38:36 LADLE CLEANER by Rhett Moreno M.D. [email or web address]
--- NOTE | 2022-05-12 07:30 | XRR_ITS ---
PROCEDURE INFORMATION: Exam: XR Chest Exam date and time: 05/12/2022 7:46 AM Age: 71 years old Clinical indication: Shortness of breath; Prior surgery; Surgery type: Lobectomy right; Patient HX: History--sob, syncope episode, weakness TECHNIQUE: Imaging protocol: Radiologic exam of the chest. Views: 1 view. COMPARISON: CT chest abd pel wo/w con 02/10/2022 8:11 AM FINDINGS: Lungs: Partial resection of the right lung with volume loss on the right. Clips in the right hilum. Pleural spaces: Unremarkable. No pleural effusion. No pneumothorax. Heart/Mediastinum: Masslike opacity adjacent to the left heart border. Please reference CT dated 02-10-22. Lungs are otherwise well aerated. Bones/joints: Unremarkable. XR/XR chest 1V portable [id number] IMPRESSION: Masslike opacity adjacent to the left heart border. Please reference CT dated 02-10-22. Lungs are otherwise well aerated.
--- NOTE | 2022-05-12 07:38 | ED_ITS ---
HPI - Weakness General: Chief complaint: Weakness Stated complaint: WEAKNESS, SOB, DEHYDRATION Time Seen by Provider: 05/12/22 07:29 History of Present Illness: This patient is a 71 year old presenting by EMS from home with weakness, nausea, shortness of breath and hypoxia. She is cu rrently on oral chemotherapy for metastatic cancer (lung, brain) and lives at home with her . This morning she got up and he helped her to the bathroom. When she got up off the toilet, she says that she couldn't breath and wilted to the floor. Her couldn't get her up and they called 911. She denies any actual fall or injuries related to that. She denies fever, chills, diarrhea, vomiting. She does have nausea all the time. She has not had much appetite. She denies urinary symptoms. She does not use oxygen at home - sats were in the low 80's on RA for EMS on arrival. She came in on 6 liters with sats in the upper 90's. She has had right and left lung resections due to cancers. She is on steroids currently. Her brain met was discovered a few months ago due to left upper extremity weakness. She was seen in [place] and not felt to be a candidate for surgery. She also has history of diabetes, hypertension, elevated cholesterol. She sees Dr. Hanna for her cancer. Associated symptoms: Reports nausea; Denies chest pain, easy bruising or headache(s) Review of Systems Const: Reports: change in appetite, fatigue and malaise Eyes: Denies: change in vision ENMT: Denies: odynophagia Card: Denies: chest pain or swelling of feet/ankles Resp: Reports: dyspnea; Denies: productive cough, non-productive cough or pain on inspiration GI: Reports: nausea : Denies: flank pain or difficulty voiding Musc: Denies: neck pain or back pain Skin/Breast: Denies: rash Neuro: Denies: headache(s), numbness in extremities or weakness in extremities Juan/Lymph: Denies: easy bruising or easy bleeding [facility] ED PFSH: Medical History Anxiety and depression COPD (chronic obstructive pulmonary disease) Diabetes Essential hypertension Family history of breast cancer Family history of colon cancer Irritable bowel syndrome with constipation Lung cancer Mass of left breast on mammogram Nicotine dependence Osteoarthritis Pulmonary nodule, right Seizure Stricture of sigmoid colon Vasovagal syncope Surgical History History of colon resection History of colonoscopy with polypectomy 2018 History of lobectomy of lung History of pneumonectomy Family History Father Hypertension Mother Hypertension Social History Smoking and tobacco status: former smoker (smoked x 40+ years) Quit status (tobacco): has quit using tobacco Year quit tobacco: 2018 [id number] Second hand smoke exposure: Yes Smoking risk assessment/counseling performed?: Yes Alcohol intake: never Caregiver/support person: No Lives independently: Yes Household members: spouse Housing: House Marital status: service: No Current occupational status: retired Pets and animals: No History of recent travel: No Current gender identity: Female Special agustín needs: No Agree to transfusion: Yes Physical Exam Const: COMMON NORMALS: no acute distress, patient oriented x3, no limitations and alert GENERAL APPEARANCE: cooperative, comfortable and other (tired) HENMT: HEAD & SCALP: normal to inspection FACE & SINUS: normal facial exam Eye: GENERAL EYE: appearance normal, both eyes and all related structures Neck/C-Spine: COMMON NORMALS: supple, no meningeal signs and no JVD Chest: COMMONS NORMALS: normal inspection of the chest Resp: COMMON NORMALS: No use of accessory muscles EFFORT & INSPECTION: Yes symmetric chest movement and Yes tachypneic AUSCULTATION: diminished lung sounds on the right Cardio: COMMON NORMALS: no JVD, regular rate, regular rhythm and No murmurs present (Cardio) RATE: regular rate RHYTHM: regular rhythm GI: COMMON NORMALS: Normal to inspection, nondistended, normoactive bowel sounds present, Soft to palpation and non-tender INSPECTION: Yes normal to inspection AUSCULTATION: Yes normoactive bowel sounds PALPATION: Yes Soft to palpation Back/Pelvis: COMMON NORMALS: thoracic and lumbar spine normal to inspection Extremity: COMMON NORMALS: normal to inspection Neuro: COMMON NORMALS: patient oriented x3, moves all extremities, no focal motor deficits and no sensory deficits noted SENSORIUM/ORIENTATION: Yes alert MENINGEAL SIGNS: Yes no meningeal signs Psych: COMMON NORMALS: mental status grossly normal, cooperative and normal affect Skin: COMMON NORMALS: no rashes or lesions noted and turgor normal GENERAL SKIN EXAM: no rashes or lesions noted and turgor normal Course Vital Signs: Vital signs: Vital Signs Temperature 98.0 F 05/12/22 07:22 Pulse Rate 107 H 05/12/22 12:00 Respiratory Rate 25 H 05/12/22 11:30 Blood Pressure 93/58 05/12/22 11:30 Pulse Oximetry 93 05/12/22 12:00 Oxygen Delivery Me thod 05/12/22 12:00 Oxygen Flow Rate 2 05/12/22 12:00 MDM - Weakness Medical Decision Making Weakness - brain cancer on immunotherapy for a few weeks. Patient indicates madhu t symptoms have been ongoing since starting that medicine. Extensive mets. Care is palliative in nature. Denies infectious signs such as fever, cough. Will check CBC for elevated or low white blood cell count. Alexander check UA. Will check CXR for evidence of pneumonia. History of cancer - will get d-dimer/CTA to evaluate for PE which is high risk in this patient. No leg swelling. Poor PO intake, BP low. Dehydration vs sepsis vs anemia vs electrolyte abnormalities vs hypoalbuminemia. IV fluids. Check CMP. EKG with non specific lateral T wave changes, troponin pending. Weakness is a potential angina equivalent. Daughter is here and provides further history - she concurs that the patient has not been vomiting or febrile, no cough. She thinks that she has been on the oral chemo for about a week. CT shows large clot burden with proximal PEs. Patient has decided that she wants to stop treatment and pursue hospice. She hopes to quickly and doesn't want to suffer or linger. We discussed the difficulty in treated PE with her brain mets - hemorrhagic at the time of diagnosis. She understands and along with her daughter and , decided that she does not want any further treatment other than comfort measures. She wants to go home on hospice today if possible. Her daughter lives in town and plans to have them come stay with her. She is an RADIOLOGY DIRECTOR and has already contacted [facility] who will consult in the ED and our secondary social studies teacher will also assist in making arrangements. Patient remaining in the ED, daughter at bedside, while awaiting hospice arrangements. She will be able to go home today. She is becoming hypotensive and somewhat lethargic but does not want any interventions. Lab Data 05/12/22 07:45 05/12/22 07:45 Radiology Impressions Chest X-Ray 05/12/22 07:30 IMPRESSION: Masslike opacity adjacent to the left heart border. Please reference CT dated 02-10-22. Lungs are otherwise well aerated. Chest CTA 05/12/22 08:48 IMPRESSION: 1. Extensive bilateral pulmonary embolic burden. Occlusive and nonocclusive emboli beginning in the lobar arteries. 2. RIGHT heart strain. 3. Progression of known metastatic lung disease. 4. Metastatic LEFT adrenal mass, new. Notified Agatha Alegria MD at 05/12/2022 9:38 AM. Laboratory Results WBC 8.7 10^3/uL (4.0-10.0) 05/12/22 07:45 RBC 3.70 10^6/uL (4.1-5.3) L 05/12/22 07:45 Hgb 11.8 g/dL (11.5-15.3) 05/12/22 07:45 Hct 37.1 % (37.0-47.0) 05/12/22 07:45 MCV 100.3 fl (81-99) H 05/12/22 07:45 MCH 31.9 pg (28.0-34.0) 05/12/22 07:45 MCHC 31.8 g/dL (30.0-36.0) 05/12/22 07:45 RDW 18.3 % (12.1-15.1) H 05/12/22 07:45 Plt Count 207 10^3/cmm (130-400) 05/12/22 07:45 MPV 10.0 fL (7.4-10.4) 05/12/22 07:45 Neut % (Auto) 67.2 % 05/12/22 07:45 Lymph % (Auto) 18.3 % 05/12/22 07:45 [place] % (Auto) 8.0 % 05/12/22 07:45 Eos % (Auto) 1.2 % 05/12/22 07:45 Baso % (Auto) 0.8 % 05/12/22 07:45 Neut # (Auto) 5.82 10^3/uL (1.8-7.7) 05/12/22 07:45 Lymph # (Auto) 1.6 10^3/uL (0.8-4.8) 05/12/22 07:45 [place] # (Auto) 0.7 10^3/uL (0.2-0.9) 05/12/22 07:45 Eos # (Auto) 0.1 10^3/uL (0.0-0.8) 05/12/22 07:45 Baso # (Auto) 0.1 10^3/uL (0.0-0.1) 05/12/22 07:45 Nucleated RBC % (auto) 0.5 % 05/12/22 07:45 Nucleated RBCs # 0.0 /100WBC 05/12/22 07:45 D-Dimer 5.18 ug/mIFEU (0-0.59) H 05/12/22 07:45 Sodium 135 mmol/L (136-145) L 05/12/22 07:45 Potassium 3.5 mmol/L (3.5-5.1) 05/12/22 07:45 Chloride 97 mmol/L (98-107) L 05/12/22 07:45 Carbon Dioxide 24 mmol/L (22-29) 05/12/22 07:45 Anion Gap 17.5 (5-19) 05/12/22 07:45 BUN 26 mg/dL (8-23) H 05/12/22 07:45 Creatinine 0.6 mg/dL (0.5-0.9) 05/12/22 07:45 GFR Calculation 98.8 mL/min (90-130) 05/12/22 07:45 Glucose 109 mg/dL (65-115) 05/12/22 07:45 Calculated Osmolality 285 mOsm/kg (285-295) 05/12/22 07:45 Lactic Acid 1.3 mmol/L (0.5-2.2) 05/12/22 07:45 Calcium 9.2 mg/dL (8.5-10.5) 05/12/22 07:45 Magnesium 1.8 mg/dL (1.7-2.3) 05/12/22 07:45 Total Bilirubin 0.4 mg/dL (0.15-1.2) 05/12/22 07:45 AST 19 U/L (0-32) 05/12/22 07:45 ALT 28 U/L (0-33) 05/12/22 07:45 Alkaline Phosphatase 57 U/L (35-105) 05/12/22 07:45 Troponin T Baseline 42 ng/L (0-10) H 05/12/22 07:45 Troponin T 120 Minute 42.43 ng/L (0-10) H 05/12/22 09:42 Delta Troponin T 0.43 ABS# (0-10) 05/12/22 09:42 NT-Pro-B Natriuret Pep 236 pg/mL (0-125) H 05/12/22 07:45 Total Protein 7.0 g/dL (6.6-8.7) 05/12/22 07:45 Albumin 3.4 g/dL (3.5-5.2) L 05/12/22 07:45 Globulin 3.6 g/dL (1.3-4.6) 05/12/22 07:45 Lipase 30 U/L (13-60) 05/12/22 07:45 Discharge Plan Discharge Patient Disposition: Home Clinical Impression: Metastatic colorectal cancer, History of lobectomy of lung, Pulmonary emboli, Syncope, Need for comfort care Condition: Stable Prescriptions: No Action (DME) Blood Glucose Test Strip See Rx Instructions .ROUTE .MEDSUPPLY Qty: 50 5RF Rx Instructions: check blood sugar daily as directed (DME) blood-glucose meter [Blood Glucose Monitoring] Kit See Rx Instructions .ROUTE .MEDSUPPLY Qty: 1 0RF Rx Instructions: check blood sugar daily as directed (DME) lancets [BD Ultra Fine Lancets] 33 gauge misc See Rx Instructions .ROUTE .MEDSUPPLY Qty: 100 3RF Rx Instructions: check blood sugar daily as directed famotidine 20 mg tablet 20 mg PO BID mirtazapine [Remeron] 15 mg tablet 7.5 mg PO BEDTIME albuterol sulfate [ProAir HFA] 90 mcg/actuation HFA aerosol inhaler 2 puff INHALATION QID PRN (Reason: shortness of breath or wheezing) Qty: 8.5 3RF levetiracetam 500 mg tablet 500 mg PO BID Qty: 180 1RF atorvastatin 80 mg tablet 80 mg PO QPM Qty: 90 1RF lorazepam 0.5 mg tablet 0.5 mg PO TID PRN (Reason: nausea and vomiting) Qty: 30 1RF Rx Instructions: DO NOT TAKE WITH XANAX may cause sedation prochlorperazine maleate [Compazine] 10 mg tablet 10 mg PO Q6H PRN (Reason: nausea and vomiting) Qty: 60 3RF Rx Instructions: every 4-6 hours as needed for MILD nausea DO NOT TAKE WITH MECLIZINE acetaminophen [Tylenol Extra Strength] 500 mg Tablet 1,000 mg PO BEDTIME ondansetron HCl 4 mg tablet 4 mg PO Q8H PRN (Reason: Nausea And Vomiting) meclizine 25 mg tablet 12.5 - 25 mg PO BID PRN (Reason: dizziness) lisinopril-hydrochlorothiazide 10-12.5 mg tablet 1 tab PO QAM Xanax 0.5 mg tablet See Rx Instructions .ROUTE .COMPLEX Rx Instructions: 0.25mg po qam and 0.5mg at bedtime dexamethasone 2 mg tablet 2 mg PO BID dapagliflozin 10 mg tablet 10 mg PO QAM Lumakras 120 mg tablet 720 mg PO QAM Discharge Orders: Discharge ED (Routine); Ordered 05/12/22 Ordered By: Agatha Alegria Referrals: Ayesha Calzada FNP [Primary Care Provider] - Patient Instructions: Opioid Safety, Pain Management Coding Level of Care Code ED Supply Chain Technician for Sera Fwd Exam Comprehensive
[2022-05-12] MEDS: sodium chloride 0.9% 500 ML 999 ML IV (07:56)
[2022-05-12 07:58] LABS: Basophils # 0.1 10^3/uL (0.0-0.1); Basophils % 0.8 %; Eosinophils # 0.1 10^3/uL (0.0-0.8); Eosinophils % 1.2 %; Hematocrit 37.1 % (37.0-47.0); Hemoglobin 11.8 g/dL (11.5-15.3); Lymphocytes # 1.6 10^3/uL (0.8-4.8); Lymphocytes % 18.3 %; Mean Corpuscular HGB Conc 31.8 g/dL (30.0-36.0); Mean Corpuscular Hemoglobin 31.9 pg (28.0-34.0); Mean Corpuscular Volume 100.3 fl (81-99); Monocytes # 0.7 10^3/uL (0.2-0.9); Neutrophils # 5.82 10^3/uL (1.8-7.7); Neutrophils % 67.2 %; Nucleated Red Blood Cells % 0.5 %; Platelet Count 207 10^3/cmm (130-400); Red Cell Distribution Width 18.3 % (12.1-15.1); White Blood Count 8.7 10^3/uL (4.0-10.0)
[2022-05-12] MEDS: ondansetron 2 mg/ML SDV 2 mL 4 MG IVP (08:12)
[2022-05-12 08:16] LABS: Troponin(5th) Baseline 42 ng/L (0-10)
--- NOTE | 2022-05-12 08:18 | PC.NURSE ---
pt arrived on 4L NC by EMS. PT has been titrated down to 1L and o2 levels are 94 percent
[2022-05-12 08:19] LABS: Lactic Sepsis W/Reflex 1.3 mmol/L (0.5-2.2)
[2022-05-12 08:22] LABS: D Dimer 5.18 ug/mIFEU (0-0.59)
[2022-05-12 08:25] LABS: Alanine Aminotransferase 28 U/L (0-33); Albumin Level 3.4 g/dL (3.5-5.2); Alkaline Phosphatase 57 U/L (35-105); Anion Gap 17.5 (5-19); Aspartate Amino Transferase 19 U/L (0-32); Blood Urea Nitrogen 26 mg/dL (8-23); Calcium 9.2 mg/dL (8.5-10.5); Carbon Dioxide 24 mmol/L (22-29); Chloride 97 mmol/L (98-107); Globulin 3.6 g/dL (1.3-4.6); Glomerular Filtration Rate 98.8 mL/min (90-130); Glucose 109 mg/dL (65-115); Lipase 30 U/L (13-60); Magnesium 1.8 mg/dL (1.7-2.3); NT Pro B Type Natriuretic Pept 236 pg/mL (0-125); Osmolality Calculated 285 mOsm/kg (285-295); Potassium 3.5 mmol/L (3.5-5.1); Sodium 135 mmol/L (136-145); Total Bilirubin 0.4 mg/dL (0.15-1.2)
--- NOTE | 2022-05-12 08:48 | CT_ITS ---
WS: [id number] CT CHEST ANGIOGRAPHY WITH REFORMATS HISTORY: CP, SOB TECHNIQUE: Contiguous axial images are obtained through the chest during arterial injection of intrav enous contrast. Images are reconstructed to evaluate the pulmonary arteries. MIP imaging also reviewe d. All CT scans at [facility] use at least one of these dose optimization techniques: automat ed exposure control; mA and/or kV adjustment per patient size (includes targeted exams where dose is matched to clinical indication); or iterative reconstruction. CONTRAST: Omnipaque 350; 81 mL IV. DLP: 376.65 mGy.cm COMPARISON: 02/10/2022 Good opacification of the pulmonary arteries. No pulmonary emboli in the main pulmonary arteries. Beg inning in the lobar branches of the LEFT upper and lower lobes extensive pulmonary emboli are identif ied. Pulmonary emboli begins in the proximal RIGHT upper, lower and middle lobe pulmonary arteries. T here is extensive pulmonary burden with occlusions involving numerous arteries especially within the RIGHT lower lobe. Pulmonary artery is dilated. Mild flattening of the septum. There is evidence for R IGHT heart strain. Moderate atherosclerotic plaque and ectasia thoracic aorta with no aneurysm. No dissection. No perica rdial or pleural effusions. Abnormal lungs. Diffuse pulmonary edema. Known pulmonary metastatic disease. Upper lobe. Largest mass measures 3.3 x 2.9 cm in the LEFT upper lobe. Mass has increased in size since 02/10/2022. Additiona l bilateral pulmonary nodules are reidentified. These have all increased in size. No pleural effusion or pneumothorax. Small mediastinal and hilar lymph nodes. LEFT adrenal mass is of slightly increased attenuation measures 2.0 x 1.8 cm consistent with metastatic disease. New since 02/10/2022. No defin ite liver lesions are identified on this examination but the phase of enhancement may be due to early to detect subtle lesions. Moderate-sized hiatal hernia. No metastatic hepatic destructive bone lesio ns are appreciated. CT/CT angio chest PE protcl [id number] IMPRESSION: 1. Extensive bilateral pulmonary embolic burden. Occlusive and nonocclusive em boli beginning in the lobar arteries. 2. RIGHT heart strain. 3. Progression of known metastatic lung disease. 4. Metastatic LEFT adrenal mass, new. Notified Agatha Alegria MD at 05/12/2022 9:38 AM.
[2022-05-12] MEDS: iohexol 350 mg/mL 500 mL Btl (per mL) IV (09:19)
--- NOTE | 2022-05-12 09:31 | ECG_ITS ---
[facility] Test Date: 2022-05-12 Pat Name: Sugar Hoskins Department: Room: Gender: Female [facility] Attendant: : 1950 Requested By: Agatha Lomeli Order Number: [id number] Pool MD: Rhett Moreno M.D. Measurements Intervals [place] Rate: 102 P: 70 CO: 130 QRS: 28 QRSD: 96 T: 92 QT: 314 QTc: 411 Interpretive Statements SINUS TACHYCARDIA NONSPECIFIC ST & T-WAVE ABNORMALITY Compared to ECG 05/12/2022 07:37:39 Possible ischemia no longer present T-wave abnormality still present Electronically Signed On 05-12-2022 14:41:46 STAGECRAFT PROFESSOR by Rhett Moreno M.D. [id number]
[2022-05-12 10:14] LABS: Troponin 5 2HR 42.43 ng/L (0-10)
[2022-05-12 10:16] LABS: Troponin 5 2HR Delta 0.43 ABS# (0-10)
--- NOTE | 2022-05-12 11:26 | DCPLANNER ---
manager of regulatory affairs was asked to help with a referral to hospice, [facility]. manager of regulatory affairs faxed patients information to [facility] for review. Facility will call patient and family to start services.
--- NOTE | 2022-05-12 12:13 | PC.NURSE ---
Pt going home on hospice. pt will remain at ED until hospice is set up at home
[2022-05-12 14:45] LABS: Bilirubin Urine Neg (Negative); Blood Urine Neg (Negative); Glucose Urine UA 2+ (Normal); Ketones Urine Negative (Negative); Nitrate Urine Negative (Negative); Protein Urine Neg (Negative); Urine Appearance Clear (CLEAR); Urine Color Straw (Yellow); Urobilinogen Urine Neg (Negative); pH Urine 5 (5-7)
[2022-05-12 14:46] LABS: Add Urine Culture? Yes; Add Urine Microscopic? YES; Leukocyte Esterase Urine Trace (Negative)
[2022-05-13 09:37] LABS: Glucose Point of Care 113 mg/dL (70-110)
== END 2022-05-12 16:58 | disposition home or self-care (01) ==
PROVIDERS: Emergency Provider Emergency Medicine; PCP Nurse Practitioner Family
DX: C78.5 Secondary malignant neoplasm of large intestine and rectum (principal); C79.31 Secondary malignant neoplasm of brain; Z85.118 Personal history of other malignant neoplasm of bronchus and lung; Z90.2 Acquired absence of lung [part of]; I26.99 Other pulmonary embolism without acute cor pulmonale; R55 Syncope and collapse; Z87.891 Personal history of nicotine dependence; J44.9 Chronic obstructive pulmonary disease, unspecified; E11.9 Type 2 diabetes mellitus without complications; I10 Essential (primary) hypertension
CPT/HCPCS: 36415; 36416; 71045; 71275; 80053; 81001; 82962; 83605; 83690; 83735; 83880; 84484; 85025; 85378; 87086; 87106; 93005; 96361; 96374; 99285; J2405; J7040; Q9967